=== PATIENT | female | born 1950 | race Caucasian/White ===

== ENCOUNTER 2024-09-18 19:25 | Inpatient (IN) ==
[2024-09-18] MEDS: OPTIRAY 320 125ml IV ONE (19:59)
[2024-09-18 20:00] LABS: iSTAT Creatinine 0.9 mg/dl (0.6-1.3); iSTAT Hemoglobin 11.6 g/dl (12.0-16.0); iSTAT Ionized Calcium 1.2 mmol/l (1.12-1.32); iSTAT Potassium 3.9 mmol/L (3.3-5.0)
[2024-09-18 20:06] LABS: Basophils # (auto) 0.05 K/uL (0.00-0.20); Basophils % (auto) 0.9 %; Eosinophils # (auto) 0.17 K/uL (0.00-0.50); Eosinophils % (auto) 3.1 %; Hematocrit (blood only) 35.7 % (37.0-47.0); Immature Granulocytes # (auto) 0.01 K/uL (0.01-0.20); Immature Granulocytes % (auto) 0.2 %; Lymphocytes % (auto) 12.8 %; Mean Corpuscular Hemoglobin 29.1 pg (25.0-34.0); Mean Corpuscular Hgb Conc 30.8 g/dL (32.0-36.0); Mean Corpuscular Volume 94.4 fL (80.0-100.0); Mean Platelet Volume 9.5 fL (9.4-12.4); Neutrophils # (auto) 3.94 K/uL (1.40-6.50); Platelet Count 255 K/uL (130-400); RDW Coefficient of Variation 15.6 % (11.5-14.5); RDW Standard Deviation 53.5 fL (36.4-46.3); Red Blood Count 3.78 M/uL (4.20-5.40); White Blood Count 5.47 K/ul (4.8-10.8)
--- NOTE | 2024-09-18 20:17 | Emergency Department Note ---
History of Present Illness General Chief complaint: TIA Symptoms Stated complaint: STROKE POTENTIAL, HIGH BP, SPEECH PROB. Time Seen by Provider: 09/18/24 19:40 Source: patient and family (Daughter at bedside) History of Present Illness Provider complaint: Difficulty speaking 74-year-old female on Eliquis presents emergency department for difficulty speaking. Daughter reports that at 1530 she received a call from the shelter stating that the patient was having difficulty finding her words. Daughter reports that she returned to the shelter within 20 minutes and the patient's symptoms had resolved. Patient reports no headache. No numbness or tingling. No history of stroke. Home Medications Medication Instructions Recorded Confirmed Type Flutter Valve #1 ea 07/15/22 09/09/24 Rx triamcinolone acetonide 0.1 % 1 applic topical BID #30 grams 12/13/22 09/09/24 Rx topical cream sodium chloride 3 % for 4 ml inhalation UD PRN Shortness 12/20/22 09/09/24 History nebulization Of Breath ondansetron 4 mg disintegrating 4 mg PO Q8H PRN Nausea 05/15/23 09/09/24 History tablet Wheeled Walker #1 ea 05/25/23 09/09/24 Rx dicyclomine 20 mg tablet 20 mg PO QID PRN diarrhea #360 tabs 11/22/23 09/09/24 Rx Bifidobacterium infantis 4 mg 4 mg PO DAILY 12/11/23 09/09/24 History capsule (Align (B.infantis)) calcium carbonate 500 mg PO QAM 12/11/23 09/09/24 History doxycycline hyclate 100 mg capsule 100 mg PO UD PRN prior to dental 12/12/23 09/09/24 History procedures fluconazole 200 mg tablet 200 mg PO DAILY #22 tabs 12/19/23 09/09/24 Rx (Diflucan) rosuvastatin 10 mg tablet 10 mg PO QAM #90 tabs 01/23/24 09/09/24 Rx apixaban 5 mg tablet (Eliquis) 5 mg PO BID #180 tabs 04/08/24 09/09/24 Rx sotalol 120 mg tablet 60 mg (1/2 x 120 mg) PO BID 90 04/08/24 09/09/24 Rx days #180 tabs levothyroxine 25 mcg tablet 25 mcg PO HS #90 tabs 04/10/24 09/09/24 Rx escitalopram oxalate 10 mg tablet 10 mg PO QAM #90 tabs 05/01/24 09/09/24 Rx losartan 100 1 tab PO HS #90 tabs 05/10/24 09/09/24 Rx mg-hydrochlorothiazide 25 mg tablet Allergies Allergy/AdvReac Type Severity Reaction Status Date / Time cephalexin [From Keflex] Allergy Mild Rash Verified 09/18/24 20:44 Sulfa (Sulfonamide Allergy Unknown Unknown Verified 09/18/24 20:44 Antibiotics) codeine AdvReac Intermediate nausea/vomi Verified 09/18/24 20:44 ting Past Med/Surg History Problem List (Updated 09/18/24 @ 20:47 by Scottie Barton MD) Brain TIA (Acute) Pleural effusion (Acute) Hypoxia (Acute) Esophageal dysphagia Chronic diarrhea Knee contusion Chronic heart failure with preserved ejection fraction Bronchiectasis Venous insufficiency of both lower extremities Abnormal CXR Vitamin B 12 deficiency S/P aortic valve replacement with bioprosthetic valve Chronic diastolic CHF (congestive heart failure) Paroxysmal atrial fibrillation Anticoagulant long-term use Diastolic heart failure Irritable bowel Depression with anxiety Hypothyroidism Hypertension Pulmonary hypertension Bleeding from varicose vein Medical History Vitamin B 12 deficiency Chronic heart failure Dysphagia Hypertension History of anesthesia reaction had period after AVR where she had a metal taste in her mouth for 3 wks after "felt like everything tasted like pennies" History of postoperative nausea and vomiting History of kidney stones Chronic diarrhea History of melanoma on leg Hypothyroidism Anxiety On anticoagulant therapy Heart murmur Paroxysmal atrial fibrillation on eliquis and follows with Dr. Chavez Bronchiectasis with nontuberculosis HOWARD, has nebulizer but per pt never uses--follows with Dr. Gee Microscopic colitis hx 2019 Aortic stenosis Bicuspid aortic valve Surgical History History of bilateral tubal ligation History of section History of hemorrhoidectomy History of colonoscopy History of melanoma excision History of tooth extraction all upper teeth removed History of tonsillectomy and adenoidectomy History of cardiac cath 2017 @ [place], [place] no stents placed History of cardiac radiofrequency ablation 2016 @ [place], [place] S/P aortic valve replacement 2016 @ [facility]--follows with Dr. Chavez Family History Mother Stroke Father Leukemia Other No family history of adverse response to anesthesia Denies family history of Ovarian cancer Prostate cancer Myocardial infarction Breast cancer Colorectal cancer Social History Smoking Status: Never smoker Second Hand Exposure: Yes; Do You Dip or Chew Tobacco: No; Hx Alcohol Use: No Hx Substance Use: No Preferred Language: Spanish Communication Ability: Effective Visual Impairment: No Limitations Hearing Ability: Normal Head Filter Press Tender Required: No Beliefs That Will Affect Care: None marital status: / Current Living Situation: Family Current Living Situation Comment: Lives with daughter current occupational status: retired How many Children do You have: 1 Feels Safe at Home: Yes Childhood Exposure to Second-Hand Smoke: Yes Diet: regular Diet Comment: regular caffeine: Yes during the past year weight has: remained stable Dental Care, Regularly: Yes Physical Activity Frequency: Daily Seatbelt Use: always Sunscreen Use: No Assistive Devices: Denture - Upper, Glasses and Nebulizer Physical Exam Vital Signs Vital Signs - 24 hr 09/18/24 19:27 09/18/24 19:45 09/18/24 19:53 Temperature 36.9 C Temperature Source Temporal Artery Scan Pulse Rate 75 87 Pulse Rate [Apical] 92 H Pulse Rate from SpO2 Sensor Pulse Rhythm Regular Pulse Strength Normal Respiratory Rate 16 23 Respiratory Effort / Characteristics Non-Labored Spontaneous Non-Labored Spontaneous Respiratory Depth Normal Normal Respiratory Pattern Regular Blood Pressure 162/88 H Blood Pressure [Right Arm] 159/93 H Blood Pressure Mean 112 Blood Pressure Mean [Right Arm] 115 Blood Pressure Position Sitting Pulse Oximetry 93 92 Oxygen Delivery Method Room Air Room Air Sepsis Recent Fever Within 48 Hours No Sepsis New/Unexplained Change in Mental Status N/A Sepsis Action Taken by Nursing No Action Required Oxygen Flow Rate - Titration Pulse Oximetry Post Tiitration 09/18/24 20:09 09/18/24 20:10 09/18/24 20:10 Temperature Temperature Source Pulse Rate 96 H Pulse Rate [Apical] Pulse Rate from SpO2 Sensor 95 H Pulse Rhythm Pulse Strength Respiratory Rate 26 H Respiratory Effort / Characteristics Respiratory Depth Respiratory Pattern Blood Pressure 178/109 H 178/109 H Blood Pressure [Right Arm] Blood Pressure Mean 132 139 Blood Pressure Mean [Right Arm] Blood Pressure Position Pulse Oximetry 87 L 87 L Oxygen Delivery Method Room Air Room Air Sepsis Recent Fever Within 48 Hours Sepsis New/Unexplained Change in Mental Status Sepsis Action Taken by Nursing Oxygen Flow Rate - Titration 2 Pulse Oximetry Post Tiitration 99 Physical Exam GENERAL: oriented to person, place, and time. appears well-developed and well- nourished. HENT: Exam performed. - Head: Normocephalic ecchymosis over the patient's left side of her face which the daughter states has been present for the last month after a fall. EYES: Conjunctivae and EOM are normal. Right eye exhibits no discharge. Left eye exhibits no discharge. No scleral icterus. NECK: Normal range of motion. Neck supple. No JVD present. CV: Normal rate, regular rhythm, normal heart sounds and intact distal pulses. There is no peripheral edema. Palpable radial pulses bue. PULM/CHEST: Diminished breath sounds bilaterally. ABD: The abdomen is soft. There is no tenderness. NEURO: Motor and sensation grossly intact. No dysarthria. No expressive aphasia. No facial droop. SKIN: Skin is warm and dry. He is not diaphoretic. PSYCH: normal mood and affect. Behavior is normal. Judgment and thought content normal. Course Course 1939: The patient was evaluated in room A10. A complete history and physical exam was performed Cardiac monitoring: An order was placed for continuous cardiac monitoring. The monitor shows a rate of 90 with sinus rhythm interpreted by me Patient is on Eliquis and her symptoms have resolved thus no code stroke called. 2043: Patient became hypoxic on room air. Supplemental oxygen was applied via nasal cannula which improved the patient's oxygen saturation. Chest x-ray viewed by me shows right-sided pleural effusion. Patient has been taking Eliquis. CT head CT angio head and neck is unremarkable. High sensitive troponin mildly elevated. [facility] Patient treated with aspirin for potential TIA. Administered Medications Discontinued Medications Ioversol (Optiray 320 125ml) 115 ml IV ONCE ONE Stop: 09/18/24 20:00 Last Admin: 09/18/24 19:59 Dose: 115 ml Documented By: LAURA Critical Care Time Critical Care Time: Yes Total Critical Care Time: 45 I have personally spent greater than 45 minutes of critical care time in the direct management of this patient. This includes bedside care, interpretation of diagnostic studies, and testing, discussion with consultants, patient, and family members, and other required patient management activities. This 45 minutes is in excess of all separately billable procedures. Medical Decision Making Laboratory Data Attestation: I reviewed the patient's lab results. 09/18/24 19:40 09/18/24 19:40 Lab Results 09/18/24 09/18/24 Range/Units 19:40 19:49 WBC 5.47 (4.8-10.8) K/ul RBC 3.78 L (4.20-5.40) M/uL Hgb 11.0 L (12.0-16.0) g/dl POC Hgb 11.6 L (12.0-16.0) g/dl Hct 35.7 L (37.0-47.0) % POC Hct 34 L (37-47) % MCV 94.4 (80.0-100.0) fL MCH 29.1 (25.0-34.0) pg MCHC 30.8 L (32.0-36.0) g/dL RDW Std Deviation 53.5 H (36.4-46.3) fL RDW Coeff of Jarrod 15.6 H (11.5-14.5) % Plt Count 255 (130-400) K/uL MPV 9.5 (9.4-12.4) fL Immature Gran % (Auto) 0.2 % Neut % (Auto) 72.0 % Lymph % (Auto) 12.8 % [place] % (Auto) 11.0 % Eos % (Auto) 3.1 % Baso % (Auto) 0.9 % Neut # (Auto) 3.94 (1.40-6.50) K/uL Lymph # (Auto) 0.70 L (1.20-3.40) K/uL [place] # (Auto) 0.60 H (0.11-0.59) K/uL Eos # (Auto) 0.17 (0.00-0.50) K/uL Baso # (Auto) 0.05 (0.00-0.20) K/uL Immature Gran # (Auto) 0.01 (0.01-0.20) K/uL POC Sodium 142 (135-144) mmol/L Sodium 141 (136-145) mmol/L POC Potassium 3.9 (3.3-5.0) mmol/L Potassium 4.0 (3.5-5.1) mmol/L POC Chloride 103 (101-112) mmol/L Chloride 107 (98-107) mmol/L Carbon Dioxide 28 (21-32) mmol/L POC Total CO2 25 (24-31) mmol/L Anion Gap 6 (3-11) POC Anion Gap 18.0 (16-25) mmol/L POC BUN 16 (7-18) mg/dl BUN 17 (6-23) mg/dl Creatinine 0.84 (0.6-1.2) mg/dl POC Creatinine 0.9 (0.6-1.3) mg/dl Est Cr Clr Drug Dosing 48.2 ml/min eGFR 71.97 BUN/Creatinine Ratio 20.2 H (10-20) Glucose 149 H (70-99(Fasting)) mg/dl POC Glucose (other) 146 H (70-99) mg/dl Calcium 9.1 (8.6-10.3) mg/dl POC Ioniz Calcium Trice 1.20 (1.12-1.32) mmol/l Magnesium 1.9 (1.7-2.4) mg/dl Total Bilirubin 0.7 (0.2-1.0) mg/dl AST 15 (13-39) U/L ALT 10 (7-52) U/L Alkaline Phosphatase 66 (34-104) U/L Troponin I High Sens 17.1 H (0-14) pg/ml Total Protein 6.6 (6.0-8.3) gm/dl Albumin 3.7 (3.4-5.0) gm/dl Globulin 2.9 (2.5-4.0) gm/dl Albumin/Globulin Ratio 1.3 (0.9-2) Imaging Data Attestation: I personally reviewed and interpreted this imaging study as follows: My Impression: Chest x-ray viewed by me shows right-sided pleural effusion. Radiologist's Impression: Head CT 09/18/24 19:47 CT HEAD: HISTORY: Altered mental status TECHNIQUE: Noncontrast CT examination of the head is performed. Coronal and sagittal reformats were created. COMPARISON: None FINDINGS: There is no evidence of intracranial hemorrhage, focal mass effect or midline shift. No fluid collection is identified. The ventricular system is midline and symmetric. No evidence of acute major vascular territory infarction. Age-related involutional changes of the brain and chronic white matter ischemic changes with small chronic lacunar infarctions. No calvarial fracture is identified. The paranasal sinuses and mastoids are well aerated. IMPRESSION: No acute intracranial process identified. Chronic findings as above Electronically signed by Bassam Alberts 09-18-2024 8:26 PM Head CTA 09/18/24 19:47 HISTORY: Altered mental status TECHNIQUE: CT angiography of the head and the neck was performed. Coronal and sagittal reformats were created. IV CONTRAST: 100 mL of OMNIPAQUE 300 COMPARISON: None FINDINGS: CTA HEAD: Stenotic/occlusive disease: None Aneurysm: None Vascular malformation: None CTA NECK: Right carotid: No hemodynamically significant stenosis. Left carotid: No hemodynamically significant stenosis. Vertebrobasilar system: No hemodynamically significant stenosis. Aortic arch and subclavian arteries: No hemodynamically significant stenosis. Nonvascular structures: Small right pleural fluid. Stenosis ranges are derived using NASCET criteria. IMPRESSION: No large vessel occlusion or hemodynamically significant stenosis. Electronically signed by Bassam Alberts 09-18-2024 8:26 PM Neck CTA 09/18/24 19:47 HISTORY: Altered mental status TECHNIQUE: CT angiography of the head and the neck was performed. Coronal and sagittal reformats were created. IV CONTRAST: 100 mL of OMNIPAQUE 300 COMPARISON: None FINDINGS: CTA HEAD: Stenotic/occlusive disease: None Aneurysm: None Vascular malformation: None CTA NECK: Right carotid: No hemodynamically significant stenosis. Left carotid: No hemodynamically significant stenosis. Vertebrobasilar system: No hemodynamically significant stenosis. Aortic arch and subclavian arteries: No hemodynamically significant stenosis. Nonvascular structures: Small right pleural fluid. Stenosis ranges are derived using NASCET criteria. IMPRESSION: No large vessel occlusion or hemodynamically significant stenosis. Electronically signed by Bassam Alberts 09-18-2024 8:27 PM ECG Data Attestation: I personally reviewed and interpreted this ECG as follows: Rate (beats per minute): 96 Rhythm: + normal sinus ECG ST segments: + Normal ST segments Additional Comments: NV 234 QRS 140 QTc 553 bifascicular block present. [facility] Narrative 194: The patient was evaluated in room A10. A complete history and physical exam was performed Cardiac monitoring: An order was placed for continuous cardiac monitoring. The monitor shows a rate of 90 with sinus rhythm interpreted by me Patient is on Eliquis and her symptoms have resolved thus no code stroke called. 2043: Patient became hypoxic on room air. Supplemental oxygen was applied via nasal cannula which improved the patient's oxygen saturation. Chest x-ray viewed by me shows right-sided pleural effusion. Patient has been taking Eliquis. CT head CT angio head and neck is unremarkable. High sensitive troponin mildly elevated. Patient will be admitted to the [facility] hospitalist team. Patient treated with aspirin for potential TIA. Impression & Plan Hypoxia, Pleural effusion, Brain TIA Discharge Plan Visit Data Chief Complaint: TIA Symptoms Stated Complaint: STROKE POTENTIAL, HIGH BP, SPEECH PROB. ED Provider: Scottie Barton Discharge Problem: Hypoxia, Pleural effusion, Brain TIA Patient Disposition: Admitted As Inpatient Condition: Serious Forms Stand Alone Forms: My [facility] Prescriptions Prescriptions: No Action triamcinolone acetonide 0.1 % cream 1 applic topical BID Qty: 30 3RF ondansetron 4 mg tablet,disintegrating 4 mg PO Q8H PRN (Reason: Nausea) Patient Comments: [facility] dicyclomine 20 mg tablet 20 mg PO QID PRN (Reason: diarrhea) Qty: 360 1RF fluconazole [Diflucan] 200 mg tablet 200 mg PO DAILY Qty: 22 0RF Rx Instructions: Diflucan 400 mg by mouth today, then 200 mg by mouth daily for 20 days rosuvastatin 10 mg tablet 10 mg PO QAM Qty: 90 3RF Eliquis 5 mg tablet 5 mg PO BID Qty: 180 1RF Rx Instructions: TAKE 1 TABLET BY MOUTH TWICE A DAY sotalol 120 mg tablet 60 mg PO BID 90 Days Qty: 180 3RF levothyroxine 25 mcg tablet 25 mcg PO HS Qty: 90 1RF Rx Instructions: TAKE 1 TABLET BY MOUTH EVERY DAY escitalopram oxalate 10 mg tablet 10 mg PO QAM Qty: 90 1RF Rx Instructions: 10 mg daily; losartan-hydrochlorothiazide 100-25 mg tablet 1 tab PO HS Qty: 90 1RF Rx Instructions: TAKE 1 TABLET BY MOUTH EVERY DAY sodium chloride 3 % solution for nebulization 4 ml inhalation UD PRN (Reason: Shortness Of Breath) (DME) Flutter Valve Device See Rx Instructions .MEDSUPPLY Qty: 1 0RF Rx Instructions: As directed (DME) Deborah Richardson Misc See Rx Instructions .MEDSUPPLY Qty: 1 0RF Rx Instructions: As directed calcium carbonate 500 mg calcium (1,250 mg) tablet 500 mg PO QAM Align (B.infantis) 4 mg capsule 4 mg PO DAILY doxycycline hyclate 100 mg capsule 100 mg PO UD PRN (Reason: prior to dental procedures) Rx Instructions: Take 100 mg capsule 30-60 mins prior to dental procedure Referrals Referrals: Savannah Blake MD [Primary Care Provider] -
[2024-09-18 20:22] LABS: Albumin Globulin Ratio 1.3 (0.9-2); BUN Creatinine Ratio 20.2 (10-20); Bilirubin,Total 0.7 mg/dl (0.2-1.0); Calcium 9.1 mg/dl (8.6-10.3); Creatinine Clr Calc Pharmacy 48.2 ml/min; Globulin 2.9 gm/dl (2.5-4.0); Magnesium 1.9 mg/dl (1.7-2.4); Total Protein 6.6 gm/dl (6.0-8.3)
--- NOTE | 2024-09-18 20:27 | CT Scan Report ---
CT HEAD: HISTORY: Altered mental status TECHNIQUE: Noncontrast CT examination of the head is performed. Coronal and sagittal reformats were created. COMPARISON: None FINDINGS: There is no evidence of intracranial hemorrhage, focal mass effect or midline shift. No fluid collection is identified. The ventricular system is midline and symmetric. No evidence of acute major vascular territory infarction. Age-related involutional changes of the brain and chronic white matter ischemic changes with small chronic lacunar infarctions. No calvarial fracture is identified. The paranasal sinuses and mastoids are well aerated. IMPRESSION: No acute intracranial process identified. Chronic findings as above Electronically signed by Bassam Alberts 09-18-2024 8:26 PM
--- NOTE | 2024-09-18 20:28 | CT Scan Report ---
HISTORY: Altered mental status TECHNIQUE: CT angiography of the head and the neck was performed. Coronal and sagittal reformats were created. IV CONTRAST: 100 mL of OMNIPAQUE 300 COMPARISON: None FINDINGS: CTA HEAD: Stenotic/occlusive disease: None Aneurysm: None Vascular malformation: None CTA NECK: Right carotid: No hemodynamically significant stenosis. Left carotid: No hemodynamically significant stenosis. Vertebrobasilar system: No hemodynamically significant stenosis. Aortic arch and subclavian arteries: No hemodynamically significant stenosis. Nonvascular structures: Small right pleural fluid. Stenosis ranges are derived using NASCET criteria. IMPRESSION: No large vessel occlusion or hemodynamically significant stenosis. Electronically signed by Bassam Alberts 09-18-2024 8:27 PM
[2024-09-18 20:29] LABS: Troponin I High Sensitivity 17.1 pg/ml (0-14)
[2024-09-18 20:40] LABS: Partial Thromboplastin Ratio 1.2; Partial Thromboplastin Time 33 Seconds (21-31); Prothrombin Time 11.2 Seconds (9.0-12.0)
--- NOTE | 2024-09-18 20:43 | XRay Report ---
EXAM: Portable AP chest radiograph TECHNIQUE: AP portable radiograph of the chest was obtained. INDICATION: Shortness of breath Comparison: Chest radiograph June 08, 2022. FINDINGS: LINES and TUBES: None CARDIOVASCULAR: Cardiac silhouette is stably enlarged in size. Left atrial appendage closure device and AVR changes. LUNGS/PLEURA: Mild pulmonary vascular congestion and chronic interstitial lung changes. Small right pleural fluid is new from previous examination. Bibasilar densities may represent atelectasis or mild pneumonia. No discernible pneumothorax. OSSEOUS/OTHER: No displaced acute osseous process identified. Median sternotomy wires IMPRESSION: New right sided pleural fluid. Bibasilar pulmonary densities may represent atelectasis pneumonia. Electronically signed by Bassam Alberts 09-18-2024 8:43 PM
--- NOTE | 2024-09-18 20:50 | History & Physical Report ---
Date of Service September 18, 2024 Assessment & Plan (1) Brain TIA: (2) Hypoxia: (3) Pleural effusion: (4) Elevated troponin: Plan 74-year-old female PMHx diastolic heart failure, pulmonary HTN, paroxysmal A-fib on Eliquis, s/p aortic valve replacement hypothyroidism, bilateral venous i nsufficiency of lower extremities, and depression with anxiety presenting for feeling of "haziness" and aphasia starting day of arrival. Last known well 1100. ED evaluation reveals no leukocytosis, H&H 11/35.7; PT/INR 11.2/1.0, APTT 33; CMP BUN/creatinine ratio 20.2, glucose 149; troponin 17.1, pending repeat; CXR new R sided pleural effusion, bibasilar pulmonary densities may represent atelectasis pneumonia; head CT no acute findings; neck CTA no acute findings; head CTA no acute findings; EKG sinus rhythm with first-degree AV block, RBBB, and LAFB at 96 bpm.; Provided with aspirin 324 mg p.o. in ED. #TIA Presenting following ~30-45 minute episode of aphasia, now resolved; LKW 1100. Symptoms resolved, not TNK candidate, on Eliquis. No other neurological sym ptoms. Never had this happen before. Mother had history of CVA. ? hypoxia during episode, had just woke up. - CBC without leukocytosis, H&H 11.0/35.7; CMP without significant abnormalities; trop 17.1, pending repeat - CBC am - Dysphagia screen x 1 - NPO until passed then heart healthy - CT head without acute findings - CTA head/neck without significant findings - 06/27/2023 carotid dopplers at this time showed mild atherosclerotic plaque without evidence of hemodynamically significant stenosis - Echo 10/2021 EF 60 to 65%, mild RAD, bioprosthetic AV - pending echo w/ bubble - A1c 03/2021 @ 6% - Lipids 01/2024 total 132, LDL 39, HDL 65, TG 140, on rosuvastatin 10mg - repeat am - Troponin 17.1, pending repeat; EKG SR w/ first-degree block + RBBB - Allow for permissive hypertension - MRI pending -- given this new pleural effusion, did do MRI with contrast - Speech consulted, appreciate assistance - Consider PT/OT #Acute hypoxia/R pleural effusion R sided pleural effusion, new finding. Pt is hypoxic on arrival, requiring supplemental O2. No infectious symptoms to include fever/chills, cough, or URI symptoms. No leukocytosis. No history of smoking. - CBC without leukocytosis, H&H is 11/35.7; PT/INR WNL - CXR new R sided pleural effusion, bibasilar pulmonary densities may represent atelectasis/pneumonia - Incentive spirometry - Pulm consulted - appreciate input + recs #Elevated troponin Pt w/ h/o diastolic heart failure as well as A-fib and AV replacement, no current chest pain - Troponin 17.1, pending repeat - EKG sinus rhythm with a first-degree AV block, RBBB, and LAFB, without ischemic changes - Likely 2/2 demand ischemia in setting of hypoxia #Anemia- H/H 11.0/35.7, no bleeding - Iron studies, CBC am #L hip pain- Oxycodone - continue #Paroxysmal A-fib- EKG on admission NSR; Eliquis, sotalol - continue Eliquis pending MRI +/- thoracentesis #Hypothyroidism- Levothyroxine - continue #Anxiety/depression- Escitalopram - continue #HLD- Rosuvastatin - continue #Constipation- Bisacodyl, docusate, MOM, senna - continue Dispo: Admit, PCU VTE Prophylaxis: On Eliquis - pending MRI +/- thoracentesis This document was dictated utilizing [id number]. Please excuse any grammatical errors that may be secondary to use of this software. Admission and Anticipated Discharge Date Admission Date: 09/18/2024 History of Present Illness Chief Complaint: Aphasia Primary Care Provider: Savannah Blake MD 74-year-old female PMHx diastolic heart failure, pulmonary HTN, paroxysmal A-fib on Eliquis, s/p aortic valve replacement hypothyroidism, bilateral venous insufficiency of lower extremities, and depression with anxiety presenting for feeling of "haziness" and aphasia starting day of arrival. Last known well 1100, and symptoms completely resolved. Patient states that on the day of arrival, she was out at breakfast with her daughter and had come back to her rehab facility to take a nap at around 1100 hrs. She awoke approximately 1 hour after this and immediately was going to rehab where she started to have "trouble getting words out." She states at that time she did not have any neurological deficits to include arm/leg numbness or tingling, or weakness. She states that she knew what she wanted to say but felt that she could not get it out. She did not have difficulties with moving her mouth or noted slurred speech or facial droop, she just could not get the words to appropriately,. She states that the symptoms lasted for approximately 30 to 45 minutes. She states that following the next 45 minutes, she felt back to normal and had no residual symptoms. She does note she has also been having some shortness of breath "for a little while" stating that it has been maybe 2 weeks. This was after her operation on her L hip and she feels that she has shortness of breath because of the pain. She does cough every once in a while, no sputum. No fever or chills. She states that approximately 1 month ago she was out in the yard cleaning up steps when she suddenly woke up on the ground and thought "how to get here." She states that she did have LOC and was on the ground for approximately 1 hour and was unable to get herself back up. She was found to have L hip fracture has been approximately 1 week in the hospital in which surgical intervention took place. This is why she is at rehab. She does have occasional pain in the L hip especially after rehab, and has occasional numbness and tingling in this leg. She states she has no new numbness or tingling. Other complaints include that she has constipation which has been an ongoing problem and worsened since taking opioids. 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 She is denying any chest pain, palpitations, abdominal pain, N/V/D/C, fever/chills, URI symptoms, syncope, weakness, or LOC otherwise. She states this is never happened before. Her mother has a history of stroke. She has been taking her medications as prescribed. ED evaluation reveals no leukocytosis, H&H 11/35.7; PT/INR 11.2/1.0, APTT 33; CMP BUN/creatinine ratio 20.2, glucose 149; troponin 17.1, pending repeat; CXR new R sided pleural effusion, bibasilar pulmonary densities may represent atelectasis pneumonia; head CT no acute findings; neck CTA no acute findings; head CTA no acute findings; EKG sinus rhythm with first-degree AV block, RBBB, and LAFB at 96 bpm.; Provided with aspirin 324 mg p.o. in ED. Please see Dr. Brown's attestation for adjustments/additions to treatment plan. Allergies Allergy/AdvReac Type Severity Reaction Status Date / Time cephalexin [From Keflex] Allergy Mild Rash Verified 09/18/24 20:44 Sulfa (Sulfonamide Allergy Unknown Unknown Verified 09/18/24 20:44 Antibiotics) codeine AdvReac Intermediate nausea/vomi Verified 09/18/24 20:44 ting Home Medications Medication Instructions Recorded Confirmed Type Flutter Valve #1 ea 07/15/22 09/09/24 Rx Wheeled Walker #1 ea 05/25/23 09/09/24 Rx apixaban 5 mg tablet (Eliquis) 5 mg PO BID #180 tabs 04/08/24 09/18/24 Rx acetaminophen 500 mg tablet 500 mg PO Q6H PRN mild pain 1-08/0309/18/24 09/18/24 History or temperature 100.4 or greater acetaminophen 500 mg tablet 500 mg PO QID pain control 09/18/24 09/18/24 History bisacodyl 10 mg rectal suppository 10 mg AL Q72H PRN bowel management 09/18/24 09/18/24 History dicyclomine 20 mg tablet 20 mg PO Q24H PRN diarrhea 09/18/24 09/18/24 History docusate sodium 100 mg capsule 100 mg PO BID 09/18/24 09/18/24 History escitalopram oxalate 5 mg tablet 5 mg PO QAM anxiety 09/18/24 09/18/24 History levothyroxine 25 mcg tablet 25 mcg PO QAM 09/18/24 09/18/24 History magnesium hydroxide 400 mg/5 mL 30 ml PO Q48H PRN constipation 09/18/24 09/18/24 History oral suspension (Milk of Magnesia) menthol-zinc oxide-aloe 1 ea topical BID PRN as needed 09/18/24 09/18/24 History vera-chamomile oil 0.45 %-20% topical ointment (Chamosyn) oxycodone 5 mg tablet 5 mg PO HS PRN Pain 09/18/24 09/18/24 History oxycodone 5 mg tablet 5 mg PO Q8H PRN pain 6-10 09/18/24 09/18/24 History polyethylene glycol 3350 17 17 g PO QAM 09/18/24 09/18/24 History gram/dose oral powder rosuvastatin 10 mg tablet 10 mg PO QPM 09/18/24 09/18/24 History sennosides 8.6 mg tablet (senna) 8.6 mg PO HS PRN Constipation 09/18/24 09/18/24 History sennosides 8.6 mg tablet (senna) 8.6 mg PO QAM constipation 09/18/24 09/18/24 History Past Med/Surg History Problem List (Updated 09/18/24 @ 21:40 by Yee Rush PA-C) Elevated troponin Brain TIA (Acute) Pleural effusion (Acute) Hypoxia (Acute) Esophageal dysphagia Chronic diarrhea Knee contusion Chronic heart failure with preserved ejection fraction Bronchiectasis Venous insufficiency of both lower extremities Abnormal CXR Vitamin B 12 deficiency S/P aortic valve replacement with bioprosthetic valve Chronic diastolic CHF (congestive heart failure) Paroxysmal atrial fibrillation Anticoagulant long-term use Diastolic heart failure Irritable bowel Depression with anxiety Hypothyroidism Hypertension Pulmonary hypertension Bleeding from varicose vein Medical History Vitamin B 12 deficiency Chronic heart failure Dysphagia Hypertension History of anesthesia reaction had period after AVR where she had a metal taste in her mouth for 3 wks after "felt like everything tasted like pennies" History of postoperative nausea and vomiting History of kidney stones Chronic diarrhea History of melanoma on leg Hypothyroidism Anxiety On anticoagulant therapy Heart murmur Paroxysmal atrial fibrillation on eliquis and follows with Dr. Chavez Bronchiectasis with nontuberculosis HOWARD, has nebulizer but per pt never uses--follows with Dr. Gee Microscopic colitis hx 2019 Aortic stenosis Bicuspid aortic valve Surgical History History of bilateral tubal ligation History of section History of hemorrhoidectomy History of colonoscopy History of melanoma excision History of tooth extraction all upper teeth removed History of tonsillectomy and adenoidectomy History of cardiac cath 2017 @ [place], [place] no stents placed History of cardiac radiofrequency ablation 2017 @ [place], [place] S/P aortic valve replacement 2017 @ [facility]--follows with Dr. Chavez Family History Mother Stroke Father Leukemia Other No family history of adverse response to anesthesia Denies family history of Ovarian cancer Prostate cancer Myocardial infarction Breast cancer Colorectal cancer Social History Smoking Status: Never smoker Second Hand Exposure: No; Do You Dip or Chew Tobacco: No; Tobacco Cessation Education Requested by Patient: No Hx Alcohol Use: No Hx Substance Use: No Preferred Language: Bahraini Communication Ability: Effective Visual Impairment: No Limitations Hearing Ability: Normal Gas Worker Required: No Beliefs That Will Affect Care: None marital status: / Current Living Situation: Rehab Current Living Situation Comment: [facility] for [facility], lives with daughter normally current occupational status: retired How many Children do You have: 1 Other Information That Helps Us Care for You: No Feels Safe at Home: Yes Safety Concerns: Feels Safe At This Time Childhood Exposure to Second-Hand Smoke: Yes Diet: regular Diet Comment: regular caffeine: Yes during the past year weight has: remained stable Dental Care, Regularly: Yes Physical Activity Frequency: Daily Seatbelt Use: always Sunscreen Use: No Assistive Devices: Denture - Upper, Oxygen - Continuous, Walker and Wheelchair Review of Systems Review of Systems: All systems reviewed & are unremarkable except as noted in Subjective Physical Exam Physical Exam: General: No acute distress Skin: Warm and dry Head: Normocephalic, atraumatic Eyes: PERRL, conjunctivae clear, sclera non-icteric ENT: External ear and ear canal without swelling; nose atraumatic; fair dentition, tongue normal appearance, pharynx normal Neck: Supple, no LAD Cardio: RRR, no M/G/R, S1 and S2 normal Resp: Wearing O2 via NC; no respiratory distress, decreased breath sound R side, lungs CTA in all lobes bilaterally, no wheezes, rales, or rhonchi Abdomen: Soft, symmetric, nontender; No masses or hepatosplenomegaly; Bowel sounds normoactive MSK: No deformities; pulses palpable and equal; no edema. Neuro: II- PERRL, no VF deficits III, IV, - EOMs intact, no deviation, no nystagmus V- Normal sensation in all locations VII- No asymmetry, no nasolabial fold flattening VIII- Normal hearing to speech IX, X- Normal palatal elevation, no ulnar deviation XI- 5/5 head turn + shoulder shrug bilaterally XII- Midline tongue protrusion Motor: 4/5 strength throughout BUE/BLE; no pronator drift Reflexes: WNL throughout, no clonus Sensory: Normal sensation throughout, no hemineglect Coordination: Normal [id number], no tremor Gait: Unable to asses Psych: Tearful, "scared". Appropriate mood and affect; good judgement and insight. Results & Data Results & Data Vital Signs (Past 12 Hours) Vital Signs Temp Pulse Pulse Resp BP BP Pulse Ox 09/18/24 20:10 178/109 H 09/18/24 20:10 87 L 09/18/24 20:09 96 H 26 H 178/109 H 87 L 09/18/24 19:53 87 09/18/24 19:45 92 H 23 159/93 H 92 09/18/24 19:27 36.9 C 75 16 162/88 H 93 O2 Del Method 09/18/24 20:10 09/18/24 20:10 Room Air 09/18/24 20:09 Room Air 09/18/24 19:53 09/18/24 19:45 Room Air 09/18/24 19:27 Room Air Laboratory Results 09/18/24 09/18/24 19:49 19:40 WBC 5.47 RBC 3.78 L Hgb 11.0 L POC Hgb 11.6 L Hct 35.7 L POC Hct 34 L MCV 94.4 MCH 29.1 MCHC 30.8 L RDW Std Deviation 53.5 H RDW Coeff of Jarrod 15.6 H Plt Count 255 MPV 9.5 Immature Gran % (Auto) 0.2 Neut % (Auto) 72.0 Lymph % (Auto) 12.8 [place] % (Auto) 11.0 Eos % (Auto) 3.1 Baso % (Auto) 0.9 Neut # (Auto) 3.94 Lymph # (Auto) 0.70 L [place] # (Auto) 0.60 H Eos # (Auto) 0.17 Baso # (Auto) 0.05 Immature Gran # (Auto) 0.01 PT 11.2 INR 1.0 APTT 33 H PTT Ratio 1.2 POC Sodium 142 Sodium 141 POC Potassium 3.9 Potassium 4.0 POC Chloride 103 Chloride 107 Carbon Dioxide 28 POC Total CO2 25 Anion Gap 6 POC Anion Gap 18.0 POC BUN 16 BUN 17 Creatinine 0.84 POC Creatinine 0.9 Est Cr Clr Drug Dosing 48.2 eGFR 71.97 BUN/Creatinine Ratio 20.2 H Glucose 149 H POC Glucose (other) 146 H Calcium 9.1 POC Ioniz Calcium Trice 1.20 Magnesium 1.9 Total Bilirubin 0.7 AST 15 ALT 10 Alkaline Phosphatase 66 Troponin I High Sens 17.1 H Total Protein 6.6 Albumin 3.7 Globulin 2.9 Albumin/Globulin Ratio 1.3 Diagnostic Findings Chest X-Ray 09/18/24 19:47 EXAM: Portable AP chest radiograph TECHNIQUE: AP portable radiograph of the chest was obtained. INDICATION: Shortness of breath Comparison: Chest radiograph June 08, 2022. FINDINGS: LINES and TUBES: None CARDIOVASCULAR: Cardiac silhouette is stably enlarged in size. Left atrial appendage closure device and AVR changes. LUNGS/PLEURA: Mild pulmonary vascular congestion and chronic interstitial lung changes. Small right pleural fluid is new from previous examination. Bibasilar densities may represent atelectasis or mild pneumonia. No discernible pneumothorax. OSSEOUS/OTHER: No displaced acute osseous process identified. Median sternotomy wires IMPRESSION: New right sided pleural fluid. Bibasilar pulmonary densities may represent atelectasis pneumonia. Electronically signed by Bassam Alberts 09-18-2024 8:[address] 09/18/24 19:47 CT HEAD: HISTORY: Altered mental status TECHNIQUE: Noncontrast CT examination of the head is performed. Coronal and sagittal reformats were created. COMPARISON: None FINDINGS: There is no evidence of intracranial hemorrhage, focal mass effect or midline shift. No fluid collection is identified. The ventricular system is midline and symmetric. No evidence of acute major vascular territory infarction. Age-related involutional changes of the brain and chronic white matter ischemic changes with small chronic lacunar infarctions. No calvarial fracture is identified. The paranasal sinuses and mastoids are well aerated. IMPRESSION: No acute intracranial process identified. Chronic findings as above Electronically signed by Bassam Alberts 09-18-2024 8:26 PM Head CTA 09/18/24 19:47 HISTORY: Altered mental status TECHNIQUE: CT angiography of the head and the neck was performed. Coronal and sagittal reformats were created. IV CONTRAST: 100 mL of OMNIPAQUE 300 COMPARISON: None FINDINGS: CTA HEAD: Stenotic/occlusive disease: None Aneurysm: None Vascular malformation: None CTA NECK: Right carotid: No hemodynamically significant stenosis. Left carotid: No hemodynamically significant stenosis. Vertebrobasilar system: No hemodynamically significant stenosis. Aortic arch and subclavian arteries: No hemodynamically significant stenosis. Nonvascular structures: Small right pleural fluid. Stenosis ranges are derived using NASCET criteria. IMPRESSION: No large vessel occlusion or hemodynamically significant stenosis. Electronically signed by Bassam Alberts 09-18-2024 8:26 PM Neck CTA 09/18/24 19:47 HISTORY: Altered mental status TECHNIQUE: CT angiography of the head and the neck was performed. Coronal and sagittal reformats were created. IV CONTRAST: 100 mL of OMNIPAQUE 300 COMPARISON: None FINDINGS: CTA HEAD: Stenotic/occlusive disease: None Aneurysm: None Vascular malformation: None CTA NECK: Right carotid: No hemodynamically significant stenosis. Left carotid: No hemodynamically significant stenosis. Vertebrobasilar system: No hemodynamically significant stenosis. Aortic arch and subclavian arteries: No hemodynamically significant stenosis. Nonvascular structures: Small right pleural fluid. Stenosis ranges are derived using NASCET criteria. IMPRESSION: No large vessel occlusion or hemodynamically significant stenosis. Electronically signed by Bassam Alberts 09-18-2024 8:27 PM Medications Administered Aspirin 324 mg p.o. ECG Additional Comments: Sinus rhythm first-degree AV block, RBBB, LAFB 96 bpm, AL 234, QRS 140, QT/QTc 438/553, PRT 110/-67/-53 Code Status & VTE Plan Code Status Full Supervising Physician Co-Signing Physician Notes patient seen and examined, chart reviewed, case discussed with BENITEZ Rush I agree with the assessment and plan as document above. PG Care Time/CCT Total # of Minutes Spent Total Time Spent with Patient: Total time spent is greater than 50% in coordination of care (as documented) at patient's floor/unit and/or counseling patient: Coding Level of Care Code 27246 INT INP/OBS CARE 3/75MIN Diagnoses Brain TIA G45.9 Hypoxia R09.02 Pleural effusion J90 Elevated troponin R79.89
[2024-09-18] MEDS: ASPIRIN 81 MG CHEW PO STA (20:52)
[2024-09-18] MEDS: GADOBUTROL 65ML VIAL IV ONE (22:20)
[2024-09-18] MEDS ORDERED: POLYETHYLENE (MIRALAX) 17 GM PACK PO PRN (22:45)
[2024-09-18] MEDS ORDERED: bisacodyL 10 MG SUPP PR PRN (22:45)
[2024-09-18] MEDS ORDERED: ACETAMINOPHEN 500 MG TAB PO PRN (22:45)
[2024-09-18] MEDS ORDERED: oxyCODONE HCL IR 5 MG TAB (IMMEDIATE RELEASE) PO PRN (22:45)
[2024-09-18] MEDS ORDERED: SENNA 8.6 MG TAB PO PRN (22:45)
[2024-09-18] MEDS ORDERED: DICYCLOMINE HCL 20 MG TAB PO PRN (22:45)
[2024-09-18] MEDS ORDERED: MAGNESIUM HYDROXIDE SUSP 30 ML UDC PO PRN (22:45)
[2024-09-18] MEDS ORDERED: MENTHOL-ZINC OXIDE 360 APPLN/120 GM TUBE EXT PRN (22:52)
[2024-09-18] MEDS: ACETAMINOPHEN 325 MG TAB PO PRN (23:00)
--- NOTE | 2024-09-19 01:30 | Magnetic Resonance Report ---
Exam(s): MRI HEAD W/WO Contrast IV Amt: 5.5ml gadavist EXAM: MR Head Without and With Intravenous Contrast CLINICAL HISTORY: Reason for exam: ? TIA, aphasia. TECHNIQUE: Magnetic resonance images of the head/brain without and with intravenous contrast in multiple planes. CONTRAST: Patient received 5.5ml gadavist of IV contrast COMPARISON: Prior head CT from September 18, 2024. FINDINGS: The study is limited secondary to motion artifact. Brain: Remote ischemic injury of the right cerebellum. Remote ischemic injury of the right capsule. Moderate nonspecific white matter changes. No mass. No hemorrhage. No acute infarct. The flow voids at the base the brain are intact. No evidence of abnormal enhancement. The dural venous sinuses are patent. Ventricles: Mild ventriculomegaly. Bones/joints: Unremarkable. No acute fracture. Sinuses: Unremarkable as visualized. No acute sinusitis. Mastoid air cells: Unremarkable as visualized. No mastoid effusion. Orbits: Unremarkable as visualized. IMPRESSION: No evidence of acute intracranial pathology. Electronically signed by: Pam Gonzales MD 09/19/24 01:29 AM
[2024-09-19] MEDS: oxyCODONE HCL IR 5 MG TAB (IMMEDIATE RELEASE) PO PRN (03:17)
[2024-09-19] MEDS: LEVOTHYROXINE SODIUM 25 MCG TABLET PO SCH (06:04)
[2024-09-19 06:39] LABS: Hematocrit (blood only) 27.9 % (37.0-47.0); Hemoglobin 9.1 g/dl (12.0-16.0); Mean Corpuscular Hemoglobin 30.6 pg (25.0-34.0); Mean Corpuscular Hgb Conc 32.6 g/dL (32.0-36.0); Mean Corpuscular Volume 93.9 fL (80.0-100.0); Mean Platelet Volume 9.5 fL (9.4-12.4); Platelet Count 208 K/uL (130-400); RDW Coefficient of Variation 15.4 % (11.5-14.5); RDW Standard Deviation 53.8 fL (36.4-46.3); Red Blood Count 2.97 M/uL (4.20-5.40); White Blood Count 4.49 K/ul (4.8-10.8)
[2024-09-19 07:03] LABS: BUN Creatinine Ratio 24.2 (10-20); Calcium 8.3 mg/dl (8.6-10.3); Chol HDL Ratio 2.6 (0-5); Creatinine Clr Calc Pharmacy 64.3 ml/min; Potassium 3.9 mmol/L (3.5-5.1)
[2024-09-19 07:14] LABS: Estimated Average Glucose 111 mg/dl; Hemoglobin A1C 5.5 % (4.5-5.6)
[2024-09-19] MEDS: ESCITALOPRAM OXALATE 10 MG TAB PO SCH (08:39)
[2024-09-19] MEDS: SENNA 8.6 MG TAB PO SCH (08:40)
[2024-09-19] MEDS: ACETAMINOPHEN 500 MG TAB PO SCH (08:40)
[2024-09-19] MEDS: POLYETHYLENE (MIRALAX) 17 GM PACK PO SCH (08:40)
[2024-09-19] MEDS: DOCUSATE SODIUM 100 MG CAP PO SCH (08:40)
--- NOTE | 2024-09-19 09:05 | Pulmonary Consultation ---
Date of Consultation September 19, 2024 Assessment & Plan (1) Pleural effusion: (2) Hypoxia: (3) Bronchiectasis: Plan Impression: 74-year-old female with history of bronchiectasis and NTM infection who has been under clinical observation presents with strokelike symptoms and was incidentally found to have a pleural effusion. She was minimally symptomatic. Recommendations: 1. Pleural effusion: Discussed potential options moving forward with the patient. These would include observation versus proceeding with a therapeutic/diagnostic thoracentesis. Unfortunately she is fully anticoagulated on Eliquis with last dose having been taken about 24 hours ago. Ideally would like this medication off for 48 to 72 hours before proceeding with any invasive procedures. The patient is not sure that she wants to undergo any invasive procedures given her minimal symptomatic state. I advised her that we would reconvene tomorrow to discuss whether or not she is interested in pursuing a potential thoracentesis moving forward. 2. Bronchiectasis: Not clinically active currently. Continue to follow. 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 She has declined therapy in the past despite some degree of radiographic progression. 3. Hypoxemia: This is a new finding for her. Wean oxygen as tolerated. Could be related to the pleural effusion. Incentive spirometry and out of bed to chair as tolerated with ambulation. 4. History of pulmonary hypertension: Not clinically active currently. Thanks for the opportunity to assist in the care of this patient. Will continue to follow with you. Feel free to contact us with questions or concerns History of Present Illness Attending Physician: Marco A Rizo MD History of Present Illness Asked by hospitalist to assist in evaluation management this patient with incidentally noted pleural effusion. History is obtained from discussion with the patient as well as review of the electronic medical record. Patient is a 74-year-old female who I see on an annual basis in the pulmonary clinic for nontuberculous mycobacterial infection. She has been reluctant to pursue therapy at this point in time. She also has a questionable history of pulmonary hypertension. She is anticoagulated on Eliquis. She presented to the emergency room yesterday with strokelike symptoms. During the course of her workup she was found to have a pleural effusion. She did endorse some mild shortness of breath and was placed on supplemental oxygen. She feels better today. She is not reporting any coughing, wheezing, or sputum production. No history of trauma. No chest pain. Her last dose of Eliquis was yesterday morning. She has not had pleural effusions previously. Allergies Allergy/AdvReac Type Severity Reaction Status Date / Time cephalexin [From Keflex] Allergy Mild Rash Verified 09/18/24 20:44 Sulfa (Sulfonamide Allergy Unknown Unknown Verified 09/18/24 20:44 Antibiotics) codeine AdvReac Intermediate nausea/vomi Verified 09/18/24 20:44 ting Home Medications Medication Instructions Recorded Confirmed Type Flutter Valve #1 ea 07/15/22 09/09/24 Rx Wheeled Walker #1 ea 05/25/23 09/09/24 Rx apixaban 5 mg tablet (Eliquis) 5 mg PO BID #180 tabs 04/08/24 09/18/24 Rx acetaminophen 500 mg tablet 500 mg PO Q6H PRN mild pain 1-509/18/24 09/18/24 History or temperature 100.4 or greater acetaminophen 500 mg tablet 500 mg PO QID pain control 09/18/24 09/18/24 History bisacodyl 10 mg rectal suppository [address] Q72H PRN bowel management 09/18/24 09/18/24 History dicyclomine 20 mg tablet 20 mg PO Q24H PRN diarrhea 09/18/24 09/18/24 History docusate sodium 100 mg capsule 100 mg PO BID 09/18/24 09/18/24 History escitalopram oxalate 5 mg tablet 5 mg PO QAM anxiety 09/18/24 09/18/24 History levothyroxine 25 mcg tablet 25 mcg PO QAM 09/18/24 09/18/24 History magnesium hydroxide 400 mg/5 mL 30 ml PO Q48H PRN constipation 09/18/24 09/18/24 History oral suspension (Milk of Magnesia) menthol-zinc oxide-aloe 1 ea topical BID PRN as needed 09/18/24 09/18/24 History vera-chamomile oil 0.45 %-20% topical ointment (Chamosyn) oxycodone 5 mg tablet 5 mg PO HS PRN Pain 09/18/24 09/18/24 History oxycodone 5 mg tablet 5 mg PO Q8H PRN pain 6-10 09/18/24 09/18/24 History polyethylene glycol 3350 17 17 g PO QAM 09/18/24 09/18/24 History gram/dose oral powder rosuvastatin 10 mg tablet 10 mg PO QPM 09/18/24 09/18/24 History sennosides 8.6 mg tablet (senna) 8.6 mg PO HS PRN Constipation 09/18/24 09/18/24 History sennosides 8.6 mg tablet (senna) 8.6 mg PO QAM constipation 09/18/24 09/18/24 History Patient History Medical History Vitamin B 12 deficiency Chronic heart failure Dysphagia Hypertension History of anesthesia reaction had period after AVR where she had a metal taste in her mouth for 3 wks after "felt like everything tasted like pennies" History of postoperative nausea and vomiting History of kidney stones Chronic diarrhea History of melanoma on leg Hypothyroidism Anxiety On anticoagulant therapy Heart murmur Paroxysmal atrial fibrillation on eliquis and follows with Dr. Chavez Bronchiectasis with nontuberculosis HOWARD, has nebulizer but per pt never uses--follows with Dr. Gee Microscopic colitis hx 2019 Aortic stenosis Bicuspid aortic valve Surgical History History of bilateral tubal ligation History of section History of hemorrhoidectomy History of colonoscopy History of melanoma excision History of tooth extraction all upper teeth removed History of tonsillectomy and adenoidectomy History of cardiac cath 2017 @ [place], [place] no stents placed History of cardiac radiofrequency ablation 2017 @ [place], [place] S/P aortic valve replacement 2017 @ [facility]--follows with Dr. Chavez Family History Mother Stroke Father Leukemia Other No family history of adverse response to anesthesia Denies family history of Ovarian cancer Prostate cancer Myocardial infarction Breast cancer Colorectal cancer Social History Smoking Status: Never smoker Second Hand Exposure: No; Do You Dip or Chew Tobacco: No; Tobacco Cessation Education Requested by Patient: No Hx Alcohol Use: No Hx Substance Use: No Preferred Language: Lebanese Communication Ability: Effective Visual Impairment: No Limitations Hearing Ability: Normal System Integration Engineer Required: No Beliefs That Will Affect Care: None marital status: / Current Living Situation: Rehab Current Living Situation Comment: [facility], lives with daughter normally current occupational status: retired How many Children do You have: 1 Other Information That Helps Us Care for You: No Feels Safe at Home: Yes Safety Concerns: Feels Safe At This Time Childhood Exposure to Second-Hand Smoke: Yes Diet: regular Diet Comment: regular caffeine: Yes during the past year weight has: remained stable Dental Care, Regularly: Yes Physical Activity Frequency: Daily Seatbelt Use: always Sunscreen Use: No Assistive Devices: Denture - Upper, Oxygen - Continuous, Walker and Wheelchair Review of Systems Review of Systems: Please refer to hospitalist admission H&P. No additions or deletions Physical Exam Constitutional: Elderly cachectic, frail female in no distress Neck: trachea midline, no thyromegaly Respiratory: no respiratory distress, no labored breathing, no cough and not tachypneic Auscultation: + diminished lung sounds Decreased breath sounds right lung base with some dullness to percussion Cardiovascular: RRR, no murmur, no edema Gastrointestinal (Abdomen): normal bowel sounds, soft, nontender, no hepatosplenomegaly Musculoskeletal: Extremities: extremities normal to inspection Skin: no rashes, warm and dry Neurologic: Nonfocal exam Lymphatic: no cervical lymphadenopathy Results & Data Results & Data Vital Signs (Past 12 Hours) Vital Signs Temp Pulse Pulse Resp BP BP Pulse Ox 09/19/24 08:00 09/19/24 07:19 36.6 C 87 17 171/93 H 93 09/19/24 07:11 74 09/19/24 03:10 36.2 C L 73 18 126/74 92 09/18/24 23:15 09/18/24 22:45 36.3 C L 80 18 172/93 H 96 09/18/24 22:43 83 09/18/24 21:00 72 16 183/106 H 99 O2 Del Method O2 Flow Rate 09/19/24 08:00 Nasal Cannula 2 09/19/24 07:19 Nasal Cannula 09/19/24 07:11 09/19/24 03:10 Nasal Cannula 2 09/18/24 23:15 Nasal Cannula 2 09/18/24 22:45 Nasal Cannula 2 09/18/24 22:43 09/18/24 21:00 Nasal Cannula 2 Critical Care Results & Data Vital Signs (Past 12 Hours) Vital Signs Temp Pulse Pulse Resp BP Pulse Ox O2 Del Method 09/19/24 08:00 Nasal Cannula 09/19/24 07:19 36.6 C 87 17 171/93 H 93 Nasal Cannula 09/19/24 07:11 74 09/19/24 03:10 36.2 C L 73 18 126/74 92 Nasal Cannula 09/18/24 23:15 Nasal Cannula 09/18/24 22:45 36.3 C L 80 18 172/93 H 96 Nasal Cannula 09/18/24 22:43 83 O2 Flow Rate 09/19/24 08:00 2 09/19/24 07:19 09/19/24 07:11 09/19/24 03:10 2 09/18/24 23:15 2 09/18/24 22:45 2 09/18/24 22:43 Lab & Micro Results (Past 24 Hours) RBC 2.97 M/uL (4.20-5.40) L 09/19/24 WBC 4.49 K/ul (4.8-10.8) L 09/19/24 Hgb 9.1 g/dl (12.0-16.0) L 09/19/24 Hct 27.9 % (37.0-47.0) L 09/19/24 MCV 93.9 fL (80.0-100.0) 09/19/24 MCH 30.6 pg (25.0-34.0) 09/19/24 MCHC 32.6 g/dL (32.0-36.0) 09/19/24 RDW Standard Deviation 53.8 fL (36.4-46.3) H 09/19/24 RDW Coefficient of Variation 15.4 % (11.5-14.5) H 09/19/24 Plt Count 208 K/uL (130-400) 09/19/24 MPV 9.5 fL (9.4-12.4) 09/19/24 Neutrophils (%) (Auto) 72.0 % 09/18/24 Lymphocytes (%) (Auto) 12.8 % 09/18/24 Monocytes # (Auto) 0.60 K/uL (0.11-0.59) H 09/18/24 Eosinophils # (Auto) 0.17 K/uL (0.00-0.50) 09/18/24 Immature Granulocyte % (Auto) 0.2 % 09/18/24 Neutrophils # (Auto) 3.94 K/uL (1.40-6.50) 09/18/24 Lymphocytes # (Auto) 0.70 K/uL (1.20-3.40) L 09/18/24 Monocytes # (Auto) 0.60 K/uL (0.11-0.59) H 09/18/24 Eosinophils # (Auto) 0.17 K/uL (0.00-0.50) 09/18/24 Basophils # (Auto) 0.05 K/uL (0.00-0.20) 09/18/24 Immature Granulocyte # (Auto) 0.01 K/uL (0.01-0.20) 5 Na 141 mmol/L (136-145) 09/19/24 K 3.9 mmol/L (3.5-5.1) 09/19/24 Cl 108 mmol/L (98-107) H 09/19/24 CO2 27 mmol/L (21-32) 09/19/24 Anion Gap 6 (3-11) 09/19/24 BUN 15 mg/dl (6-23) 09/19/24 Creatinine 0.62 mg/dl (0.6-1.2) 09/19/24 BUN/Creatinine Ratio 24.2 (10-20) H 09/19/24 Glu 88 mg/dl (70-99(Fasting)) 09/19/24 Ca 8.3 mg/dl (8.6-10.3) L 09/19/24 Total Bilirubin 0.7 mg/dl (0.2-1.0) 09/18/24 AST 15 U/L (13-39) 09/18/24 ALT 10 U/L (7-52) 09/18/24 Alkaline Phosphatase 66 U/L (34-104) 09/18/24 TP 6.6 gm/dl (6.0-8.3) 09/18/24 Albumin 3.7 gm/dl (3.4-5.0) 09/18/24 Globulin 2.9 gm/dl (2.5-4.0) 09/18/24 Albumin/Globulin Ratio 1.3 (0.9-2) 09/18/24 Mg 1.9 mg/dl (1.7-2.4) 09/18/24 19:40 Calcium Level 8.3 mg/dl (8.6-10.3) L 09/19/24 05:46 Prothromb Time International Ratio 1.0 (0.9-1.1) 09/18/24 19:4 0 Diagnostic Findings (Past 24 Hours) Chest X-Ray 09/18/24 19:47 EXAM: Portable AP chest radiograph TECHNIQUE: AP portable radiograph of the chest was obtained. INDICATION: Shortness of breath Comparison: Chest radiograph June 08, 2022. FINDINGS: LINES and TUBES: None CARDIOVASCULAR: Cardiac silhouette is stably enlarged in size. Left atrial appendage closure device and AVR changes. LUNGS/PLEURA: Mild pulmonary vascular congestion and chronic interstitial lung changes. Small right pleural fluid is new from previous examination. Bibasilar densities may represent atelectasis or mild pneumonia. No discernible pneumothorax. OSSEOUS/OTHER: No displaced acute osseous process identified. Median sternotomy wires IMPRESSION: New right sided pleural fluid. Bibasilar pulmonary densities may represent atelectasis pneumonia. Electronically signed by Bassam Alberts 09-18-2024 8:[address] 09/18/24 19:47 CT HEAD: HISTORY: Altered mental status TECHNIQUE: Noncontrast CT examination of the head is performed. Coronal and sagittal reformats were created. COMPARISON: None FINDINGS: There is no evidence of intracranial hemorrhage, focal mass effect or midline shift. No fluid collection is identified. The ventricular system is midline and symmetric. No evidence of acute major vascular territory infarction. Age-related involutional changes of the brain and chronic white matter ischemic changes with small chronic lacunar infarctions. No calvarial fracture is identified. The paranasal sinuses and mastoids are well aerated. IMPRESSION: No acute intracranial process identified. Chronic findings as above Electronically signed by Bassam Alberts 09-18-2024 8:26 PM Head CTA 09/18/24 19:47 HISTORY: Altered mental status TECHNIQUE: CT angiography of the head and the neck was performed. Coronal and sagittal reformats were created. IV CONTRAST: 100 mL of OMNIPAQUE 300 COMPARISON: None FINDINGS: CTA HEAD: Stenotic/occlusive disease: None Aneurysm: None Vascular malformation: None CTA NECK: Right carotid: No hemodynamically significant stenosis. Left carotid: No hemodynamically significant stenosis. Vertebrobasilar system: No hemodynamically significant stenosis. Aortic arch and subclavian arteries: No hemodynamically significant stenosis. Nonvascular structures: Small right pleural fluid. Stenosis ranges are derived using NASCET criteria. IMPRESSION: No large vessel occlusion or hemodynamically significant stenosis. Electronically signed by Bassam Alberts 09-18-2024 8:26 PM Neck CTA 09/18/24 19:47 HISTORY: Altered mental status TECHNIQUE: CT angiography of the head and the neck was performed. Coronal and sagittal reformats were created. IV CONTRAST: 100 mL of OMNIPAQUE 300 COMPARISON: None FINDINGS: CTA HEAD: Stenotic/occlusive disease: None Aneurysm: None Vascular malformation: None CTA NECK: Right carotid: No hemodynamically significant stenosis. Left carotid: No hemodynamically significant stenosis. Vertebrobasilar system: No hemodynamically significant stenosis. Aortic arch and subclavian arteries: No hemodynamically significant stenosis. Nonvascular structures: Small right pleural fluid. Stenosis ranges are derived using NASCET criteria. IMPRESSION: No large vessel occlusion or hemodynamically significant stenosis. Electronically signed by Bassam Alberts 09-18-2024 8:27 PM Brain MRI 09/18/24 21:42 Exam(s): MRI HEAD W/WO Contrast IV Amt: 5.5ml gadavist EXAM: MR Head Without and With Intravenous Contrast CLINICAL HISTORY: Reason for exam: ? TIA, aphasia. TECHNIQUE: Magnetic resonance images of the head/brain without and with intravenous contrast in multiple planes. CONTRAST: Patient received 5.5ml gadavist of IV contrast COMPARISON: Prior head CT from September 18, 2024. FINDINGS: The study is limited secondary to motion artifact. Brain: Remote ischemic injury of the right cerebellum. Remote ischemic injury of the right capsule. Moderate nonspecific white matter changes. No mass. No hemorrhage. No acute infarct. The flow voids at the base the brain are intact. No evidence of abnormal enhancement. The dural venous sinuses are patent. Ventricles: Mild ventriculomegaly. Bones/joints: Unremarkable. No acute fracture. Sinuses: Unremarkable as visualized. No acute sinusitis. Mastoid air cells: Unremarkable as visualized. No mastoid effusion. Orbits: Unremarkable as visualized. IMPRESSION: No evidence of acute intracranial pathology. Electronically signed by: Pam Gonzales MD 09/19/24 01:29 AM I & O Totals 24 Hours 09/18/24 09/19/24 09/20/24 06:59 06:59 06:59 Intake Total 100 / 100 Output Total 325 / 325 Balance -225 / -225 Cumulative 09/18/24 19:25 thru 09/19/24 06:00 Intake Total 100 Output Total 325 Balance -225 RT Ventilator Mngmt (Last Documented) Ventilator Ordered Settings Respiratory Rate 17 09/19/24 07:19 Ventilator - PT Measurements Respiratory Rate 17 PG Care Time/CCT Total # of Minutes Spent Total Time Spent with Patient: Total time spent is greater than 50% in coordination of care (as documented) at patient's floor/unit and/or counseling patient: Coding Level of Care Code 92374 INT INP/OBS CARE 255MIN Diagnoses Pleural effusion J90 Hypoxia R09.02 Bronchiectasis J47.9
--- NOTE | 2024-09-19 11:37 | Hospitalist Progress Note ---
Date of Service September 19, 2024 Assessment & Plan (1) Brain TIA: Plan: -CT/CTA negative -MRI brain negative -on eliquis, crestor PT/OT (2) Pleural effusion: Plan: -Pulmonary consult appreciated -recommending observation vs thoracentesis -pt no yet ready to make decision -pulmonology to f/u in am (3) Hypoxia: Plan: -likely 2nd to pleura effusion (4) Elevated troponin: Plan: -stable at 22 -likely 2nd to demand ischemia from hypoxia Plan 74-year-old female PMHx diastolic heart failure, pulmonary HTN, paroxysmal A-fib on Eliquis, s/p aortic valve replacement hypothyroidism, bilateral venous insufficiency of lower extremities, and depression with anxiety presenting for feeling of "haziness" and aphasia starting day of arrival. Last known well 1100. ED evaluation reveals no leukocytosis, H&H 11/35.7; PT/INR 11.2/1.0, APTT 33; CMP BUN/creatinine ratio 20.2, glucose 149; troponin 17.1, pending repeat; CXR new R sided pleural effusion, bibasilar pulmonary densities may represent atelectasis pneumonia; head CT no acute findings; neck CTA no acute findings; head CTA no acute findings; EKG sinus rhythm with first-degree AV block, RBBB, and LAFB at 96 bpm.; Provided with aspirin 324 mg p.o. in ED. #Hypothyroidism- Levothyroxine - continue #Anxiety/depression- Escitalopram - continue #HLD- Rosuvastatin - continue #Constipation- Bisacodyl, docusate, MOM, senna - continue Admission and Anticipated Discharge Date Admission Date: September 18, 2024 Subjective No events overnight. Review of Systems Review of Systems: CONST: Negative for fever, body aches and chills. HENT: Negative for neck pain/stiffness, headache, congestion, sore throat, swelling. EYES: Negative for discharge/pain or vision changes. RESP: Negative for cough/hemoptysis and shortness of breath. CV: Negative chest pain, difficulty breathing, palpitations. ABD: Negative pain, nausea, vomiting. : Negative increase frequency, dysuria, blood in urine or stool. MUSC: Negative for muscle aches, edema. SKIN: Negative rash, lesions/sores. NEURO: Negative headache, dizziness, weakness. Physical Exam Physical Exam: GENERAL APPEARANCE NAD, activity normal for age, well developed/ well nourished, no cyanosis, pallor, or diaphoresis. EYES lids/conjunctiva normal. EARS/NOSE/THROAT Mucous membranes moist, nares normal, lips/teeth normal uvula midline without oral pharyngeal erythema, exudate or swelling TMs normal bilaterally. No lymphangitis/lymphedema. HEAD/NECK normocephalic atraumatic, no facial trauma, neck is supple. RESPIRATORY respiratory effort normal, speaks in full sentences, no tripod position, no accessory muscle use. Lungs clear to auscultation without rhonchi, wheezes, rales CARDIAC Regular rate and rhythm, no edema. ABDOMINAL Soft, ND/NT. No evidence of fluid wave. No pulsatile masses on exam, rebound tenderness, Pimentel sign or pain over Mcburney's point. MUSCLES/EXTREMITIES No abnormal range of motion, no swelling. SKIN Warm, pink and dry. No rashes, dermatoses, petechiae or lesions. NEUROLOGICAL Speech is clear and appropriate. Normal level of consciousness. Gait and coordination are normal. 5/5 strength in all extremities. PSYCH Normal mood and affect. Judgement/competence is appropriate Results & Data Results & Data Vital Signs (Past 12 Hours) Vital Signs Temp Pulse Pulse Resp BP Pulse Ox O2 Del Method 09/19/24 10:33 36.3 C L 82 16 182/90 H 96 Room Air 09/19/24 08:00 Nasal Cannula 09/19/24 07:19 36.6 C 87 17 171/93 H 93 Nasal Cannula 09/19/24 07:11 74 09/19/24 03:10 36.2 C L 73 18 126/74 92 Nasal Cannula O2 Flow Rate 09/19/24 10:33 09/19/24 08:00 2 09/19/24 07:19 09/19/24 07:11 09/19/24 03:10 2 PG Care Time/CCT Total # of Minutes Spent Total Time Spent with Patient: Total time spent is greater than 50% in coordination of care (as documented) at patient's floor/unit and/or counseling patient: Coding Level of Care Code 65991 SUB INP/OBS CARE 2/35MIN Diagnoses Brain TIA G45.9 Pleural effusion J90 Hypoxia R09.02 Elevated troponin R79.89
[2024-09-19] MEDS: hydrALAZINE HCL 20 MG/ML VIAL IV PRN (15:29)
--- NOTE | 2024-09-19 15:41 | Electrocardiogram Report ---
Test Reason : Blood Pressure : */* mmHG Vent. Rate : 96 BPM Atrial Rate : 96 BPM P-R Int : 234 ms QRS Dur : 140 ms QT Int : 438 ms P-R-T Axes : 110 -67 -53 degrees QTcB Int : 553 ms Sinus rhythm with 1st degree A-V block Right bundle branch block Left anterior fascicular block Bifascicular block T wave abnormality, consider inferolateral ischemia Abnormal ECG When compared with ECG of 05-Aug-2024 14:05, T wave inversion more evident in Inferior leads T wave inversion now evident in Lateral leads Confirmed by Dread Campos ([id number]) on 09/19/2024 3:41:30 PM Referred By: REFERRED SELF Confirmed By: Dread Campos
[2024-09-19] MEDS: LORazepam 0.5 MG TAB PO PRN (17:46)
[2024-09-19] MEDS: LOSARTAN POTASSIUM 50 MG TAB PO SCH (17:46)
[2024-09-19] MEDS: hydroCHLOROthiazide 25 MG TAB PO SCH (17:46)
--- NOTE | 2024-09-19 18:39 | XCELERA ---
[id number]
[2024-09-19] MEDS: ROSUVASTATIN CALCIUM 10 MG TAB PO SCH (20:35)
[2024-09-19] MEDS: MELATONIN 3 MG TAB PO PRN (20:35)
[2024-09-20] MEDS: ONDANSETRON INJ 2 MG/ML 2 ML VIAL IV PRN (07:29)
--- NOTE | 2024-09-20 09:10 | Procedure Note ---
Procedure Note Date of Service September 20, 2024 Procedure: Diagnostic therapeutic ultrasound-guided catheter thoracentesis Materials Handling Coordinator: Dr. Dilip Gee MD, PRISCILA Lu Indication: Pleural effusion Consent: Signed by patient and verified with time out prior to procedure Anesthesia: 1% lidocaine without epinephrine local. Procedure: Consent was verified and time out performed. Appropriate imaging studies were reviewed prior to the procedure. Patient was placed in a seated position and limited thoracic ultrasound was performed of the right chest. See separate imaging. Appropriate site above the diaphragm for thoracentesis was selected. The skin was prepped and draped in normal sterile fashion. Lidocaine was used for local analgesia. Fluid was aspirated via the finder needle. A small skin jenn was made with the scalpel and the catheter over the needle apparatus was advanced over the rib into the pleural space. Using the syringe one-way valve system, a total of 900 mL's of patrick fluid was removed. Procedure was terminated due to re-expansion of lung and no further fluid able to remove.. The catheter was removed and observed to be intact. A sterile dressing was applied. Post procedure chest x-ray was ordered. Fluid was sent for labs, culture and cytology. Complications: None Blood loss: 0 [facility] Procedure Codes (Charges) Pulmonary/Thoracic Procedure 1: Pulmonary and Thoracic: 31564 Thoracentesis w imaging Coding CPT Codes Pulmonary/Thoracic - Pulmonary and Thoracic: 10761 Thoracentesis w imaging ([id number]) Additional Codes Date of Service ([email or web address])
--- NOTE | 2024-09-20 09:14 | Pulmonology Progress Note ---
Date of Service September 20, 2024 Assessment & Plan (1) Pleural effusion: (2) Hypoxia: (3) Bronchiectasis: Plan Impression: 74-year-old female with history of bronchiectasis and NTM infection who has been under clinical observation presents with strokelike symptoms and was incidentally found to have a pleural effusion. She is mildly hypoxemic and complains of some mild shortness of breath and has elected to proceed with thoracentesis. Her systemic anticoagulation has been held for over 48 hours Recommendations: 1. Pleural effusion: Patient has elected to proceed with diagnostic therapeutic thoracentesis which will be performed today. Fluid will be sent for routine microbiologic as well as cytologic analysis. This pleural effusion does not require her to remain in the hospital. 2. Bronchiectasis: Not clinically active currently. Continue to follow. 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 She has declined therapy in the past despite some degree of radiographic progression. 3. Hypoxemia: Will see if oxygen can be weaned to off after the effusion is sampled. Formal two-step prior to discharge is recommended. 4. History of pulmonary hypertension: Not clinically active currently. Patient can likely be dismissed from the hospital from a pulmonary perspective after the effusion has been sampled if the follow-up chest x-ray demonstrates no acute abnormality. I can follow-up with her in clinic. Feel free to contact us with questions or concerns Admission and Anticipated Discharge Date Admission Date: September 18, 2024 Subjective Patient seen and examined. EMR reviewed. The patient reports that her breathing is a little bit more labored today. She has elected to proceed with a diagnostic and therapeutic thoracentesis. She is not having any fevers chills or night sweats. She remains significantly hypertensive. She is not coughing or expectorating phlegm. Review of Systems 2 Review of Systems: All systems reviewed & are unremarkable except as noted in Subjective Physical Exam 2 Neck: trachea midline, no thyromegaly Respiratory: no respiratory distress, no labored breathing, no cough and not tachypneic Auscultation: + diminished lung sounds Cardiovascular: RRR, no murmur, no edema Gastrointestinal (Abdomen): normal bowel sounds, soft, nontender, no hepatosplenomegaly Musculoskeletal: Extremities: extremities normal to inspection Skin: no rashes, warm and dry Lymphatic: no cervical lymphadenopathy Results & Data Results & Data Vital Signs (Past 12 Hours) Vital Signs Temp Pulse Pulse Resp BP Pulse Ox O2 Del Method 09/20/24 09:00 36.7 C 88 18 188/100 H 99 Room Air 09/20/24 03:39 36.9 C 99 H 18 161/101 H 97 Nasal Cannula 09/19/24 22:53 36.4 C L 81 18 155/84 H 95 Nasal Cannula 09/19/24 22:45 81 O2 Flow Rate 09/20/24 09:00 09/20/24 03:39 2 09/19/24 22:53 2 09/19/24 22:45 Laboratory Results 09/19/24 05:46 09/19/24 05:46 Diagnostic Findings No new imaging PG Care Time/CCT Total # of Minutes Spent Total Time Spent with Patient: Total time spent is greater than 50% in coordination of care (as documented) at patient's floor/unit and/or counseling patient: Coding Level of Care Code 82273 SUB INP/OBS CARE 2/35MIN Diagnoses Pleural effusion J90 Hypoxia R09.02 Bronchiectasis J47.9
--- NOTE | 2024-09-20 09:27 | Hospitalist Progress Note ---
Date of Service September 20, 2024 Assessment & Plan (1) Brain TIA: Plan: -CT/CTA negative -MRI brain negative -on elitess ortiz -PT/OT (2) Pleural effusion: Plan: -Pulmonary consult appreciated -thoracentesis done this am -02 sats 99% on RA (3) Hypoxia: Plan: -likely 2nd to pleura effusion -02 sats 99% on RA (4) Elevated troponin: Plan: stable at 22 -likely 2nd to demand ischemia from hypoxia Plan 74-year-old female PMHx diastolic heart failure, pulmonary HTN, paroxysmal A-fib on Eliquis, s/p aortic valve replacement hypothyroidism, bilateral venous insufficiency of lower extremities, and depression with anxiety presenting for feeling of "haziness" and aphasia starting day of arrival. Last known well 1100. ED evaluation reveals no leukocytosis, H&H 11/35.7; PT/INR 11.2/1.0, APTT 33; CMP BUN/creatinine ratio 20.2, glucose 149; troponin 17.1, pending repeat; CXR new R sided pleural effusion, bibasilar pulmonary densities may represent atelectasis pneumonia; head CT no acute findings; neck CTA no acute findings; head CTA no acute findings; EKG sinus rhythm with first-degree AV block, RBBB, and LAFB at 96 bpm.; Provided with aspirin 324 mg p.o. in ED. #Anemia- H/H 11.0/35.7, no bleeding - Iron studies, CBC am #L hip pain- Oxycodone - continue #Paroxysmal A-fib- EKG on admission NSR; Eliquis, sotalol - continue Eliquis pending MRI +/- thoracentesis #Hypothyroidism- Levothyroxine - continue #Anxiety/depression- Escitalopram - continue #HLD- Rosuvastatin - continue #Constipation- Bisacodyl, docusate, MOM, senna - continue Admission and Anticipated Discharge Date Admission Date: September 18, 2024 Subjective Pt had thoracentesis this am. Pt resting comfortably in bed. Review of Systems Review of Systems: CONST: Negative for fever, body aches and chills. HENT: Negative for neck pain/stiffness, headache, congestion, sore throat, swelling. EYES: Negative for discharge/pain or vision changes. RESP: Negative for cough/hemoptysis and shortness of breath. CV: Negative chest pain, difficulty breathing, palpitations. ABD: Negative pain, nausea, vomiting. : Negative increase frequency, dysuria, blood in urine or stool. MUSC: Negative for muscle aches, edema. SKIN: Negative rash, lesions/sores. NEURO: Negative headache, dizziness, weakness. Physical Exam Physical Exam: GENERAL APPEARANCE NAD, activity normal for age, well developed/ well nourished, no cyanosis, pallor, or diaphoresis. EYES lids/conjunctiva normal. EARS/NOSE/THROAT Mucous membranes moist, nares normal, lips/teeth normal uvula midline without oral pharyngeal erythema, exudate or swelling TMs normal bilaterally. No lymphangitis/lymphedema. HEAD/NECK normocephalic atraumatic, no facial trauma, neck is supple. RESPIRATORY respiratory effort normal, speaks in full sentences, no tripod position, no accessory muscle use. Lungs clear to auscultation without rhonchi, wheezes, rales CARDIAC Regular rate and rhythm, no edema. ABDOMINAL Soft, ND/NT. No evidence of fluid wave. No pulsatile masses on exam, rebound tenderness, Pimentel sign or pain over Mcburney's point. MUSCLES/EXTREMITIES No abnormal range of motion, no swelling. SKIN Warm, pink and dry. No rashes, dermatoses, petechiae or lesions. NEUROLOGICAL Speech is clear and appropriate. Normal level of consciousness. Gait and coordination are normal. 5/5 strength in all extremities. PSYCH Normal mood and affect. Judgement/competence is appropriate Results & Data Results & Data Vital Signs (Past 12 Hours) Vital Signs Temp Pulse Pulse Resp BP Pulse Ox O2 Del Method 09/20/24 09:00 36.7 C 88 18 188/100 H 99 Room Air 09/20/24 03:39 36.9 C 99 H 18 161/101 H 97 Nasal Cannula 09/19/24 22:53 36.4 C L 81 18 155/84 H 95 Nasal Cannula 09/19/24 22:45 81 O2 Flow Rate 09/20/24 09:00 09/20/24 03:39 2 09/19/24 22:53 2 09/19/24 22:45 PG Care Time/CCT Total # of Minutes Spent Total Time Spent with Patient: Total time spent is greater than 50% in coordination of care (as documented) at patient's floor/unit and/or counseling patient: Coding Level of Care Code 01932 SUB INP/OBS CARE 235MIN Diagnoses Brain TIA G45.9 Pleural effusion J90 Hypoxia R09.02 Elevated troponin R79.89
--- NOTE | 2024-09-20 09:39 | XRay Report ---
XR chest 1V portable CLINICAL HISTORY: S/P Thoracentesis COMPARISON STUDY: 09/18/2024 FINDINGS: Stable cardiac valve repair. Stable mild cardiomegaly without pulmonary vascular congestion . There is stranding opacity at the right lung base, improved. No other consolidation or pleural effu vahid. No pneumothorax. Stable scarring in the lung apices. IMPRESSION: 1. No pneumothorax. 2. Stranding opacity right lung base, improved. ACT 112: Negative or not required by law. Electronically signed by: Edward Garnica M.D. 09/20/2024 9:37 AM
[2024-09-20 10:10] LABS: Glucose Pleural Fluid 105 mg/dl; LDH Pleural Fluid 53 U/L; Total Protein Pleural Fluid < 3.0 gm/dl
[2024-09-20 10:22] LABS: Appearance Pleural Fluid Cloudy; Color Pleural Fluid Amber; RBC Pleural Fluid Auto 9000 /uL; Source Pleural Fluid Right Lung; WBC Pleural Fluid Auto 289 /uL
[2024-09-20 10:23] LABS: Lymphocytes, Fluid 75 %; Mono,Macrophage,Mesothelial 21 %; Neutrophils, Fluid 4 %
[2024-09-21 07:21] VITALS: RESP 19; TEMP 97.9
--- NOTE | 2024-09-21 10:49 | Discharge Summary ---
Discharge Summary Date of Service September 21, 2024 Principal Dx & Hospital Course #1 = Principal Diagnosis (1) Brain TIA: -CT/CTA negative -MRI brain negative -on eliquis, crestor -PT/OT (2) Pleural effusion: -Pulmonary consult appreciated -thoracentesis done this am -02 sats 99% on RA (3) Hypoxia: -likely 2nd to pleura effusion -02 sats 99% on RA (4) Elevated troponin: stable at 22 -likely 2nd to demand ischemia from hypoxia Plan 74-year-old female PMHx diastolic heart failure, pulmonary HTN, paroxysmal A-fib on Eliquis, s/p aortic valve replacement hypothyroidism, bilateral venous insufficiency of lower extremities, and depression with anxiety presenting for feeling of "haziness" and aphasia starting day of arrival. Last known well 1100. ED evaluation reveals no leukocytosis, H&H 11/35.7; PT/INR 11.2/1.0, APTT 33; CMP BUN/creatinine ratio 20.2, glucose 149; troponin 17.1, pending repeat; CXR new R sided pleural effusion, bibasilar pulmonary densities may represent atelectasis pneumonia; head CT no acute findings; neck CTA no acute findings; head CTA no acute findings; EKG sinus rhythm with first-degree AV block, RBBB, and LAFB at 96 bpm.; Provided with aspirin 324 mg p.o. in ED. Do as outpatient: Reassessment of blood pressure, adjustment of losartan as noted Continue Lasix 20 mg daily, adjust as needed based on volume status. Recheck BMP within 1 week Iron polysaccharide daily for low normal iron deficiency and mild anemia. No clinical signs of bleeding, vital signs stable at discharge Aspirin 81 mg started for stroke prevention, re/benefits of adding this to aspirin was discussed with patient and family at bedside Outpatient follow-up with cardiology, neurology, and PCP Recheck CBC within 1 week to ensure stability Nely is a 74-year-old female with a past history of type II diastolic dysfunction who presented with dysarthria concerning for TIA with symptoms which have improved, a and during evaluation was found to have a right-sided pleural effusion and mild pulmonary vascular congestion, interstitial edema. She had a thoracentesis which showed transudative fluid. Her aphasia completely resolved, MRI was normal, and CTAhead and neck did not show any significant occlusion/stenosis. She did not have any facial droop or extremity weakness. Her and her daughter do report that she had more than 1 episode of sudden speech finding difficulty and they are very concerned about stroke given a history of this in the family. Reviewed that a TIA cannot be due to newly ruled out, some global confusion from hypoxia related to her CHF as an alternative and even probable diagnosis. On shared decision making she strongly prefers to minimize risk of stroke were possible and given she has had more than 1 episode of the speech difficulty not exclusively/definitively limited to her hypoxic episode feels the benefits of starting baby aspirin therapy along with her Eliquis exceeds the bleeding risk which was reviewed at bedside. She was started on baby aspirin daily. Statin was controlled and blood pressure control is continued as noted. Due to hypoxia and effusion pulmonology was consulted. Thoracentesis showed transudative fluid. She had mild ankle edema. In the past she had been on losartan and hydrochlorothiazide however this was discontinued after her hip f racture due to hypotension at that time. Echo here showed EF 60 to 65%, grade 2 diastolic dysfunction Overall suspect patient has acute on chronic heart failure with preserved ejection fraction evidenced by transudative effusion, pulmonary edema, mild leg swelling, and clinically with orthopnea. She was actually hypertensive on admission. Due to high risk of hypotension and reported orthostatic episodes in the past did discuss various plans with the patient. Feel continuing dose reduced losartan and switching her hydrochlorothiazide to Lasix 20 mg daily is reasonable. They will follow her blood pressure and if consistently elevated while euvolemic increase the losartan. If she is lightheaded/dizzy or hypotensive while euvolemic they will hold the losartan. She is a good historian and checks her weight daily and will monitor for signs of leg edema/orthopnea/weight gain. If hypotensive and euvolemic she will call her provider for recommendations regarding her Bumex and hold this otherwise. If she has increasing edema then this could potentially be increased. This will be assessed at rehab, and she will have a follow-up appointment with her PCP and leasing assistant on discharge. Patient did request a cardiology consult during admission to address hypertension. Reviewed her history with her and family at bedside who expressed a appreciation of care, are okay with deferring consultation to outpatient follow-up with the plan above. Case was reviewed with cardiology who are in agreement. She did have a minimally elevated troponin at 22 which down trended, likely due to hypoxia. She did not have chest pain or angina in any point and did not have acute EKG changes. She is normal sinus rhythm, does have a history of Eliquis on sotalol and anticoagulated with Eliquis which was held around her thoracentesis and then resumed. She does have a history of mild anemia. Hemoglobin did drop somewhat with fluids likely reconstitution. She did not show any evidence of acute bleeding and felt clinically well. Heart rate was normal. Iron studies were low end of normal. She will continue an iron supplement, polysaccharide selected over sulfate due to history of constipation. Can repeat CBC within 1 week, BMP as well to ensure stable renal function. Admission HPI Per Admitting Provider 74-year-old female PMHx diastolic heart failure, pulmonary HTN, paroxysmal A-fib on Eliquis, s/p aortic valve replacement hypothyroidism, bilateral venous insufficiency of lower extremities, and depression with anxiety presenting for feeling of "haziness" and aphasia starting day of arrival. Last known well 1100, and symptoms completely resolved. Patient states that on the day of arrival, she was out at breakfast with her daughter and had come back to her rehab facility to take a nap at around 1100 hrs. She awoke approximately 1 hour after this and immediately was going to rehab where she started to have "trouble getting words out." She states at that time she did not have any neurological deficits to include arm/leg numbness or tingling, or weakness. She states that she knew what she wanted to say but felt that she could not get it out. She did not have difficulties with moving her mouth or noted slurred speech or facial droop, she just could not get the words to appropriately,. She states that the symptoms lasted for approximately 30 to 45 minutes. She states that following the next 45 minutes, she felt back to normal and had no residual symptoms. She does note she has also been having some shortness of breath "for a little while" stating that it has been maybe 2 weeks. This was after her operation on her L hip and she feels that she has shortness of breath because of the pain. She does cough every once in a while, no sputum. No fever or chills. She states that approximately 1 month ago she was out in the yard cleaning up steps when she suddenly woke up on the ground and thought "how to get here." She states that she did have LOC and was on the ground for approximately 1 hour and was unable to get herself back up. She was found to have L hip fracture has been approximately 1 week in the hospital in which surgical intervention took place. This is why she is at rehab. She does have occasional pain in the L hip especially after rehab, and has occasional numbness and tingling in this leg. She states she has no new numbness or tingling. Other complaints include that she has constipation which has been an ongoing problem and worsened since taking opioids. Her last bowel movement was the day SURGICAL ONCOLOGIST after using a suppository. She is denying any chest pain, palpitations, abdominal pain, N/V/D/C, fever/chills, URI symptoms, syncope, weakness, or LOC otherwise. She states this is never happened before. Her mother has a history of stroke. She has been taking her medications as prescribed. ED evaluation reveals no leukocytosis, H&H 11/35.7; PT/INR 11.2/1.0, APTT 33; CMP BUN/creatinine ratio 20.2, glucose 149; troponin 17.1, pending repeat; CXR new R sided pleural effusion, bibasilar pulmonary densities may represent atelectasis pneumonia; head CT no acute findings; neck CTA no acute findings; head CTA no acute findings; EKG sinus rhythm with first-degree AV block, RBBB, and LAFB at 96 bpm.; Provided with aspirin 324 mg p.o. in ED. Please see Dr. Brown's attestation for adjustments/additions to treatment plan. Discharge Exam General: A&Ox3. NAD. Cooperative. HEENT: Atraumatic, normocephalic. Vision/hearing grossly intact. Pulm: CTAB A&P. -wheezes, -rales, -rhonchi. Symmetrical chest rise. No increased work of breathing. No respiratory distress. R thoro site clean, dry, no bleeding/tenderness. Cardiac: RRR, -mrg. Radial pulses intact and symmetrical. Abdominal: Nontender, nondistended, soft. BS present. Extremities: Scant ankle edema Discharge Plan Discharge Items Patient Disposition: Transfer Inpatient Rehab Fac Reason For Visit: TIA, R PLEURAL EFFUSION Discharge Diagnosis: TIA Acute on chronic CHF Condition on Discharge: Good Activity: Resume your previous activity Non-emergency contact: Primary Care Provider, Flight Operations Inspector and Neurologist Call non-emergency contact if: you have any medication questions, your symptoms worsen, your pain is not controlled and your pain is worsening Follow-up/Referrals: Raheem Bullard MD [Physician] - Rambo Chavez MD [Physician] - Savannah Blake MD [Primary Care Provider] - 09/30/24 4:00 pm (Hospital follow up scheduled September 30 at 4:00) Diet: Heart Healthy Addtl Attending Provider Instructions: You were seen in the hospital for difficulty speaking/strokelike symptoms. These symptoms resolved. A CTA of your head and neck did not show any acute abnormalities. An MRI did not show any evidence of stroke. A TIA cannot be definitively excluded. You were found to have shortness of breath, difficulty breathing. You showed evidence of some fluid on the lung and a pleural effusion which was drained by pulmonology. This fluid was transudative, or thin, and can occur with congestive heart failure. An ultrasound of your heart showed normal heart pumping (EF), but stiff relaxation which can cause diastolic dysfunction and congestive fluid overload. You have had labile blood pressures in the past although were slightly high during admission. To help treat fluid overload and blood pressure you have been discharged on losartan 50 mg by mouth and Lasix 20 mg by mouth daily. If your blood pressure is below 100, please hold these medications and contact your family doctor. If your blood pressure is high and you do not have evidence of fluid overload (leg swelling, difficulty breathing) your provider may wish to increase your losartan as an outpatient. If you have shortness of breath, shortness of breath when laying flat, weight gain, or leg swelling this all may represent fluid accumulation and your Lasix may need to be increased. Please contact your family doctor or leasing assistant if this occurs. Your symptoms may have been caused by transient low oxygen levels related to her your CHF; however a TIA cannot be definitively excluded. You have been recommended to continue rosuvastatin 10 mg daily and blood pressure medicines as noted. Addition of a aspirin or aspirin like medication can help reduce the risk of strokes in the future, however when combined with Eliquis also slightly increases your risk of bleeding. Continuation of Eliquis monotherapy versus Eliquis/aspirin was discussed with you prior to discharge. You have a family history of CVA, and mild atherosclerotic plaque without significant stenosis in your carotid arteries, and have had more than 1 episode of sudden speech finding difficulty not definitively limited to your hypoxic episode. On shared decision making you have been started on a baby aspirin daily, if you have any signs of bleeding including bright red bleeding, bloody bowel movements, black bowel movements, nosebleeds or other concerning findings please stop taking aspirin and Eliquis and seek immediate medical reattention in the emergency department. You are being discharaged back to rehab at [facility]. You felt very well and greatly improved at time of discharge Routine follow-up is being scheduled for you with your leasing assistant, neurologist, and family doctor. If you develop any new or worsening symptoms including fever, chills, sweats, chest pain, chest pressure, difficulty breathing, uncontrolled nausea/vomiting, rash, wheezing, passing out or nearly passing out, bleeding, black/bloody bowel movements, or other new or concerning symptoms please call your primary care physician, or call 911 for re-evaluation in the emergency department if you are very concerned. Pending Studies at Discharge: No Stand-Alone Forms: [employer], Smoking Cessation Skilled Items Patient informed of condition?: Yes DNR: No Discharge Level of Care: Acute rehab Communicable Disease: No Discharge Prognosis: Stable Lines: None Urinary Catheter: No Medications and DC Order Prescriptions: New furosemide 20 mg tablet 20 mg PO DAILY Qty: 30 0RF Rx Instructions: Hold for SBP <100 DBP <50 aspirin 81 mg tablet 81 mg PO DAILY Qty: 30 0RF losartan 50 mg Tablet 50 mg PO QAM Qty: 30 0RF Continued Eliquis 5 mg tablet 5 mg PO BID Qty: 180 1RF Rx Instructions: TAKE 1 TABLET BY MOUTH TWICE A DAY (DME) Flutter Valve Device See Rx Instructions .MEDSUPPLY Qty: 1 0RF Rx Instructions: As directed (DME) Wheeled Walker Misc See Rx Instructions .MEDSUPPLY Qty: 1 0RF Rx Instructions: As directed sennosides [senna] 8.6 mg tablet 8.6 mg PO HS PRN (Reason: Constipation) sennosides [senna] 8.6 mg tablet 8.6 mg PO QAM acetaminophen 500 mg tablet 500 mg PO QID Rx Instructions: Do not exceed 3 gm/apap/day acetaminophen 500 mg tablet 500 mg PO Q6H PRN (Reason: mild pain 1-5/10 or temperature 100.4 or greater) magnesium hydroxide [Milk of Magnesia] 400 mg/5 mL Suspension 30 ml PO Q48H PRN (Reason: constipation ) Rx Instructions: May have one dose in 24 hours if no BM in 7 shifts bisacodyl 10 mg Suppository 10 mg OR Q72H PRN (Reason: bowel management ) docusate sodium 100 mg capsule 100 mg PO BID polyethylene glycol 3350 17 gram/dose powder 17 g PO QAM Rx Instructions: mix in 6-8 ounces of fluid of choice; hold for loose stools oxycodone 5 mg tablet 5 mg PO Q8H PRN (Reason: pain 6-10) oxycodone 5 mg tablet 5 mg PO HS PRN (Reason: Pain) escitalopram oxalate 5 mg tablet 5 mg PO QAM Chamosyn 0.45-20 % Ointment 1 ea TOPICAL BID PRN (Reason: as needed) levothyroxine 25 mcg tablet 25 mcg PO QAM dicyclomine 20 mg tablet 20 mg PO Q24H PRN (Reason: diarrhea) rosuvastatin 10 mg tablet 10 mg PO QPM Discharge Orders: Discharge Order (Routine); Ordered 09/21/24 Ordered By: Lon Goodman Admission Data Admit Date/Time: 09/18/24 21:30 Attending Provider: Lon Goodman Admit Provider: Ambreen Brown Primary Care Provider: Savannah Blake Other Providers: Jane Solomon; Ambreen Brown; Dilip Gee; Rambo Chavez Hospital Stay Data Consultations 09/18/24 20:32 ED Decision to Admit Stat 09/18/24 22:45 Consult Pulmonology Routine 09/20/24 16:26 Consult Cardiology Routine Diagnostic Imagining Performed 09/18/24 19:47 CT angio head w con Stat CT angio neck with con Stat CT head/brain wo con Stat 09/18/24 21:42 MRI Brain [MR brain wo/w con] Stat Discharge Instructions Given to Patient (Per Discharging Provider) You were seen in the hospital for difficulty speaking/strokelike symptoms. These symptoms resolved. A CTA of your head and neck did not show any acute abnormalities. An MRI did not show any evidence of stroke. A TIA cannot be definitively excluded. You were found to have shortness of breath, difficulty breathing. You showed evidence of some fluid on the lung and a pleural effusion which was drained by pulmonology. This fluid was transudative, or thin, and can occur with congestive heart failure. An ultrasound of your heart showed normal heart pumping (EF), but stiff relaxation which can cause diastolic dysfunction and congestive fluid overload. You have had labile blood pressures in the past although were slightly high during admission. To help treat fluid overload and blood pressure you have been discharged on losartan 50 mg by mouth and Lasix 20 mg by mouth daily. If your blood pressure is below 100, please hold these medications and contact your family doctor. If your blood pressure is high and you do not have evidence of fluid overload (leg swelling, difficulty breathing) your provider may wish to increase your losartan as an outpatient. If you have shortness of breath, shortness of breath when laying flat, weight gain, or leg swelling this all may represent fluid accumulation and your Lasix may need to be increased. Please contact your family doctor or leasing assistant if this occurs. Your symptoms may have been caused by transient low oxygen levels related to her your CHF; however a TIA cannot be definitively excluded. You have been recommended to continue rosuvastatin 10 mg daily and blood pressure medicines as noted. Addition of a aspirin or aspirin like medication can help reduce the risk of strokes in the future, however when combined with Eliquis also slightly increases your risk of bleeding. Continuation of Eliquis monotherapy versus Eliquis/aspirin was discussed with you prior to discharge. You have a family history of CVA, and mild atherosclerotic plaque without significant stenosis in your carotid arteries, and have had more than 1 episode of sudden speech finding difficulty not definitively limited to your hypoxic episode. On shared decision making you have been started on a baby aspirin daily, if you have any signs of bleeding including bright red bleeding, bloody bowel movements, black bowel movements, nosebleeds or other concerning findings please stop taking aspirin and Eliquis and seek immediate medical reattention in the emergency department. You are being discharaged back to rehab at [facility]. You felt very well and greatly improved at time of discharge Routine follow-up is being scheduled for you with your leasing assistant, neurologist, and family doctor. If you develop any new or worsening symptoms including fever, chills, sweats, chest pain, chest pressure, difficulty breathing, uncontrolled nausea/vomiting, rash, wheezing, passing out or nearly passing out, bleeding, black/bloody bowel movements, or other new or concerning symptoms please call your primary care physician, or call 911 for re-evaluation in the emergency department if you are very concerned. Total Time Total Time Spent Total Time Spent (In Minutes): Time spend day of discharge 50 minutes including direct patient care, documentation, review of labs and images, and coordination of care. Coding Level of Care Code 71068 INP/OBS DISCH >30 MIN Diagnoses Brain TIA G45.9 Pleural effusion J90 Hypoxia R09.02 Elevated troponin R79.89
--- NOTE | 2024-09-21 10:59 | Pulmonology Progress Note ---
Date of Service September 21, 2024 Assessment & Plan (1) Pleural effusion: (2) Hypoxia: (3) Bronchiectasis: Plan Impression: 74-year-old female with history of bronchiectasis and NTM infection who has been under clinical observation presents with strokelike symptoms and was incidentally found to have a pleural effusion. She status post thoracentesis yesterday with improvement in clinical symptoms. Fluid appears to be consistent with a transudative etiology. Recommendations: 1. Pleural effusion: Transudate. AFB stains cultures and cytology pending and will need to be followed up in the outpatient setting. Would recommend diuretics, monitoring daily weights, and following kidney function. 2. Bronchiectasis: Not clinically active currently. Continue to follow. 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 She has declined therapy in the past despite some degree of radiographic progression. 3. Hypoxemia: Resolved 4. History of pulmonary hypertension: Not clinically active currently. The patient is can be dismissed from a pulmonary perspective. She already has follow-up scheduled with me in the outpatient setting. Feel free to contact me with questions or concerns Admission and Anticipated Discharge Date Admission Date: September 18, 2024 Subjective Patient seen and examined. EMR reviewed. The patient is awake alert and conversant. She appears much improved from yesterday. She is off oxygen. She denies any chest pain. No cough or sputum production. Multiple family members present at bedside. Review of Systems 2 Review of Systems: All systems reviewed & are unremarkable except as noted in Subjective Physical Exam 2 Neck: trachea midline, no thyromegaly Respiratory: no respiratory distress, no labored breathing, no cough and not tachypneic Auscultation: lungs clear to auscultation bilaterally Cardiovascular: RRR, no murmur, no edema Gastrointestinal (Abdomen): normal bowel sounds, soft, nontender, no hepatosplenomegaly Musculoskeletal: Extremities: extremities normal to inspection Skin: no rashes, warm and dry Lymphatic: no cervical lymphadenopathy Results & Data Results & Data Vital Signs (Past 12 Hours) Vital Signs Temp Pulse Resp BP Pulse Ox O2 Del Method 09/21/24 07:20 36.6 C 86 19 131/79 95 Room Air 09/21/24 03:30 36.7 C 101 H 17 125/71 95 Room Air 09/21/24 01:23 95 Room Air 09/20/24 23:48 36.6 C 94 H 16 113/70 92 Room Air Laboratory Results 09/19/24 05:46 09/19/24 05:46 Pleural fluid studies: Differential: 4% neutrophils, 75% lymphocytes, 21% mesothelial cells pH 7.47 Total protein less than 3 LDH 53 Glucose 105 Gram stain with many white cells and no organisms AFB stains pending Diagnostic Findings Postprocedure chest x-ray from thoracentesis was reviewed. No residual pleural effusion identified. No pneumothorax. Chronic bronchiectatic changes noted PG Care Time/CCT Total # of Minutes Spent Total Time Spent with Patient: Total time spent is greater than 50% in coordination of care (as documented) at patient's floor/unit and/or counseling patient: Coding Level of Care Code 88583 SUB INP/OBS CARE 2/35MIN Diagnoses Pleural effusion J90 Hypoxia R09.02 Bronchiectasis J47.9
[2024-09-21 11:54] VITALS: BP 111/74; PULSE 84; O2SAT 94
== END 2024-09-21 16:18 | DRG 69 ==
LOC: ED 19:25 → 4W 21:30 → SUATTDRO 21:30 → 4W 21:51